=== PATIENT | female | born 1955 | race Caucasian/White ===

== ENCOUNTER 2021-03-20 11:04 | Outpatient (CLI) | payer MEDICARE, SELFPAY ==
--- NOTE | 2021-03-20 11:13 | MM_ITS ---
WS: [id number] BILATERAL DIGITAL SCREENING MAMMOGRAPHY WITH CAD CLINICAL INFORMATION: SCREENING HISTORY: Screening mammogram. No current complaints. COMPARISON: TECHNIQUE: Bilateral CC and MLO views. FINDINGS: Scattered fibroglandular densities bilaterally. No suspicious focal mass, asymmetry, calcifications, or architectural distortion. No evidence of malignancy. MM/[place] [id number] IMPRESSION: BI-RADS: 1-Negative FOLLOW UP: 1 Year Follow-up Recommend return to annual screening mammography.
== END 2021-03-20 11:05 | disposition home or self-care (01) ==
LOC: RADSHAW 11:10
DX: Z12.31 Encounter for screening mammogram for malignant neoplasm of breast (principal)
CPT/HCPCS: 77067

== ENCOUNTER 2021-04-23 13:11 | Outpatient (CLI) | payer MEDICARE, SELFPAY ==
--- NOTE | 2021-04-23 13:17 | US_ITS ---
WS: [id number] RENAL ULTRASOUND HISTORY: FLANK PAIN, RIGHT COMPARISON: 04/23/2018 TECHNIQUE: 2-D and color Doppler imaging of the kidney submitted. Right kidney: 9.7 cm x 3.9 cm x 4.0 cm. Normal echogenicity with no hydronephrosis or mass. Left kidney: 9.5 cm x 4.0 cm x 3.9 cm. Normal echogenicity with no hydronephrosis or mass. Aorta: Normal. Urinary Bladder: Nondistended. US/US renal BI* [id number] IMPRESSION: Normal renal ultrasound.
== END 2021-04-23 13:12 | disposition home or self-care (01) ==
LOC: US 13:12
PROVIDERS: Visit Provider Nurse Practitioner Family
DX: R10.9 Unspecified abdominal pain (principal)
CPT/HCPCS: 76770

== ENCOUNTER 2021-05-08 16:55 | Outpatient (CLI) | payer MEDICARE, SELFPAY ==
--- NOTE | 2021-05-08 17:27 | MR_ITS ---
WS: [id number] MRI LUMBAR SPINE NONCONTRAST HISTORY: NUMBNESS/LOW BACK PAIN COMPARISON: None available. TECHNIQUE: Sagittal and axial multisequence imaging is submitted. Normal lumbar alignment with no compression fractures or marrow edema. Very mild disc desiccation without narrowing throughout the lumbar spine. Conus terminates normally at L1-2 disc level. L1-L2: Normal. L2-L3: Mild facet joint arthritis. No stenosis. L3-L4: Less than 2 mm anterolisthesis of L3. Very mild annular disc bulging with moderate facet and l igamentum flavum hypertrophy. Greater arthritic changes involving the RIGHT facet joint. RIGHT facet joint arthritis encroaches and slightly displaces the RIGHT L4 nerve root. There is encroachment into the thecal sac bilaterally due to facet joint disease. Mild RIGHT foraminal stenosis. L4-L5: Mild annular disc bulging with moderate bilateral facet joint arthritis. Very mild bilateral l ateral recess narrowing. L5-S1: No significant stenosis or disc protrusion. MR/MR lumbar spine wo con* [id number] IMPRESSION: 1. No severe central or foraminal stenosis. 2. Moderate facet joint arthritis at L3-4 with mild encroachment into the thec al sac and mild narrowing of the RIGHT facet joint. 3. RIGHT facet joint arthritic changes encroach upon and slightly displace the RIGHT L4 nerve root in the lateral recess.
== END 2021-05-08 16:56 | disposition home or self-care (01) ==
LOC: RADSHAW 17:01
PROVIDERS: Visit Provider Nurse Practitioner Family
DX: R20.0 Anesthesia of skin (principal); M54.5 Low back pain; M47.816 Spondylosis without myelopathy or radiculopathy, lumbar region
CPT/HCPCS: 72148

== ENCOUNTER → 2021-05-28 10:33 | Outpatient (BNVA) | payer MEDICARE, SELFPAY | PROVIDERS: Referring Provider Nurse Practitioner Family; Visit Provider Orthopaedic Surgery | DX: M47.816 Spondylosis without myelopathy or radiculopathy, lumbar region (principal) | CPT/HCPCS: 72110 ==

== ENCOUNTER → 2021-05-29 08:21 | Outpatient (BNVA) | payer MEDICARE, SELFPAY | PROVIDERS: Referring Provider Orthopaedic Surgery; Visit Provider Anesthesiology Pain Medicine | DX: G89.29 Other chronic pain (principal); M54.9 Dorsalgia, unspecified; M47.816 Spondylosis without myelopathy or radiculopathy, lumbar region; M51.36 Other intervertebral disc degeneration, lumbar region; M54.16 Radiculopathy, lumbar region; M79.604 Pain in right leg | CPT/HCPCS: 99204 ==

== ENCOUNTER → 2021-06-11 12:28 | Outpatient (BNVA) | payer MEDICARE, SELFPAY | PROVIDERS: Visit Provider Anesthesiology Pain Medicine | DX: M54.16 Radiculopathy, lumbar region (principal); M54.9 Dorsalgia, unspecified | CPT/HCPCS: 64483; 64484; J1100; J3490 ==

== ENCOUNTER 2021-10-08 14:14 | Outpatient (CLI) | payer MEDICARE, SELFPAY ==
--- NOTE | 2021-10-08 14:21 | XR_ITS ---
WS: [id number] SCREENING DEXA SCAN [employer] CLINICAL INFORMATION: HIGH RISK FOR OSTEOPOROSIS COMPARISON: 2015 FINDINGS: The L1-L4 bone mineral density measures 1.576 g/cm2. This corresponds to a T score score of 3.3 and Z score of 4.3. Left femoral neck bone mineral density measures 1.279 g/cm2. This corresponds to a T score of 2.2 and Z score of 3.0. Right femoral neck bone mineral density measures 1.281 g/cm2. This corresponds to a T score 2.2of and Z score of 3.0. Mean femoral neck bone mineral density measures 1.280 g/cm2. This corresponds to a T score of 2.2 and Z score of 3.0. XR/XR DEXA axial skeleton* [id number] IMPRESSION: Normal bone mineralization. Patient's FRAX calculated 10 year probability for major osteoporotic fracture i s 9.5 % and osteoporotic hip fracture is 0.2%.
== END 2021-10-08 14:15 | disposition home or self-care (01) ==
PROVIDERS: PCP Clinical Nurse Specialist Adult Health; Visit Provider Clinical Nurse Specialist Adult Health
DX: Z91.89 Other specified personal risk factors, not elsewhere classified (principal)
CPT/HCPCS: 77080

== ENCOUNTER → 2022-02-12 14:59 | Outpatient (BNVA) | payer MEDICARE, SELFPAY | PROVIDERS: PCP Clinical Nurse Specialist Adult Health; Visit Provider Nurse Practitioner Family | DX: R35.0 Frequency of micturition (principal) | CPT/HCPCS: 81003 ==

== ENCOUNTER → 2022-03-10 09:51 | Outpatient (BNVA) | payer MEDICARE, SELFPAY | PROVIDERS: PCP Clinical Nurse Specialist Adult Health; Visit Provider Nurse Practitioner Family | DX: R35.0 Frequency of micturition (principal) | CPT/HCPCS: 81003 ==

== ENCOUNTER 2022-04-22 13:21 | Outpatient (CLI) | payer MEDICARE, SELFPAY ==
--- NOTE | 2022-04-22 13:29 | MM_ITS ---
WS: [id number] VIEWS: MLO and CC views both breasts. 3D digital tomosynthesis is also included in this exam. Comparison made with prior exam of 10/16/2014, 10/17/2015, 04/13/2017, and 03/20/2021.. Findings: There was no sign of mass, architectural distortion or suspicious calcification in either breast. Sc attered fibroglandular densities MM/[place] [id number] Impression: BI-RADS: 2-Benign FOLLOW-UP: 1 Year Follow-up This mammogram was also analyzed by the Computer Aided Detection System R2 Imag e Counselor Aide.
== END 2022-04-22 13:22 | disposition home or self-care (01) ==
LOC: RAD 13:24
PROVIDERS: PCP Clinical Nurse Specialist Adult Health; Visit Provider Clinical Nurse Specialist Adult Health
DX: Z12.31 Encounter for screening mammogram for malignant neoplasm of breast (principal)
CPT/HCPCS: 77063; 77067

== ENCOUNTER 2022-07-09 11:48 | Outpatient (CLI) | payer MEDICARE, SELFPAY ==
--- NOTE | 2022-07-09 11:56 | XRR_ITS ---
PROCEDURE INFORMATION: Exam: XR Chest Exam date and time: 07/09/2022 12:19 PM Age: 66 years old Clinical indication: Cough TECHNIQUE: Imaging protocol: Radiologic exam of the chest. Views: 2 views. Total images: 3 COMPARISON: CR Chest 2 views* [id number] 03/15/2018 2:28 PM FINDINGS: Lungs: Unremarkable. No consolidation. Pleural spaces: Unremarkable. No pleural effusion. No pneumothorax. Heart/Mediastinum: Unremarkable. No cardiomegaly. Bones/joints: Spinal degenerative changes are evident. Organs: Surgical clips are present in the right upper quadrant which are suggestive of prior cholecystectomy. XR/XR chest 2V* [id number] IMPRESSION: No acute findings.
== END 2022-07-09 11:49 | disposition home or self-care (01) ==
LOC: RAD 11:50
PROVIDERS: PCP Clinical Nurse Specialist Adult Health; Visit Provider Specialist
DX: R05.9 Cough, unspecified (principal)
CPT/HCPCS: 71046; 86003

== ENCOUNTER → 2022-07-24 10:29 | Outpatient (BNVA) | payer MEDICARE, SELFPAY | PROVIDERS: PCP Clinical Nurse Specialist Adult Health; Visit Provider Clinical Nurse Specialist Adult Health | DX: E03.9 Hypothyroidism, unspecified (principal) | CPT/HCPCS: 84443 ==

== ENCOUNTER → 2022-07-28 14:44 | Outpatient (BNVA) | payer MEDICARE, SELFPAY | PROVIDERS: PCP Clinical Nurse Specialist Adult Health; Visit Provider Internal Medicine Critical Care Medicine | DX: R05.3 Chronic cough (principal) | CPT/HCPCS: 99204 ==

== ENCOUNTER → 2022-09-01 10:22 | Outpatient (BNVA) | payer MEDICARE, SELFPAY | PROVIDERS: PCP Clinical Nurse Specialist Adult Health; Visit Provider Internal Medicine Critical Care Medicine | DX: R05.3 Chronic cough (principal) | CPT/HCPCS: 99213 ==

== ENCOUNTER → 2022-09-22 10:26 | Outpatient (BNVA) | payer MEDICARE, SELFPAY | PROVIDERS: PCP Clinical Nurse Specialist Adult Health; Visit Provider Clinical Nurse Specialist Adult Health | DX: E78.5 Hyperlipidemia, unspecified (principal); E03.9 Hypothyroidism, unspecified; I10 Essential (primary) hypertension | CPT/HCPCS: 80053; 80061; 84443; 85025 ==

== ENCOUNTER → 2022-09-30 13:30 | Outpatient (BNVA) | payer MEDICARE, SELFPAY | PROVIDERS: PCP Clinical Nurse Specialist Adult Health; Visit Provider Clinical Nurse Specialist Adult Health | DX: R35.0 Frequency of micturition (principal); Z00.01 Encounter for general adult medical examination with abnormal findings | CPT/HCPCS: 81000 ==

== ENCOUNTER → 2022-10-02 15:20 | Outpatient (BNVA) | payer MEDICARE, SELFPAY | PROVIDERS: PCP Clinical Nurse Specialist Adult Health; Visit Provider Clinical Nurse Specialist Adult Health | DX: R35.0 Frequency of micturition (principal); Z00.01 Encounter for general adult medical examination with abnormal findings | CPT/HCPCS: 87086 ==

== ENCOUNTER → 2023-01-12 11:42 | Outpatient (BNVA) | payer MEDICARE, SELFPAY | PROVIDERS: PCP Clinical Nurse Specialist Adult Health; Visit Provider Clinical Nurse Specialist Adult Health | DX: R35.0 Frequency of micturition (principal); N39.0 Urinary tract infection, site not specified | CPT/HCPCS: 81000; 87086 ==

== ENCOUNTER 2023-01-16 09:56 | Outpatient (CLI) | payer MEDICARE, SELFPAY ==
--- NOTE | 2023-01-16 10:27 | XR_ITS ---
WS: [id number] KUB, AP view, 01/16/2023 Clinical Data: hematuria, back and flank pain Comparison: KUB, 06/01/2018 Findings: No abnormal intraabdominal masses or calcifications are seen. There is no dilatated small bowel or ev idence of obstruction. There is a moderate amount of fecal material in the colon. There are clips in the right upper quadran t from a cholecystectomy. XR/XR KUB [id number] Impression: Negative KUB.
== END 2023-01-16 09:57 | disposition home or self-care (01) ==
PROVIDERS: PCP Clinical Nurse Specialist Adult Health; Visit Provider Clinical Nurse Specialist Adult Health
DX: N39.0 Urinary tract infection, site not specified (principal); R31.9 Hematuria, unspecified; R35.0 Frequency of micturition
CPT/HCPCS: 74018

== ENCOUNTER 2023-01-19 14:27 | Emergency (ER) | payer MEDICARE, SELFPAY ==
[2023-01-19] VITALS (32 sets, daily range): BP systolic 124–187; BP diastolic 57–97; PULSE 62–95; RESP 12–28; TEMP 36.3; O2SAT 88–99
--- NOTE | 2023-01-19 15:02 | XR_ITS ---
WS: [id number] Exam: XR chest 1V portable [id number] Date/Time of Exam: 01/19/2023 3:05 PM Reason For Exam: Chest pain Comparison 07/09/2022. Findings: The lungs are clear and fully expanded. Costophrenic angles are sharp. No infiltrates. Bronchovascula r relief appears normal. Cardiac silhouette is unremarkable. Bony elements are intact. XR/XR chest 1V portable [id number] IMPRESSION: Unremarkable chest radiograph.
--- NOTE | 2023-01-19 15:02 | ECG_ITS ---
[facility] Test Date: 2023-01-19 Pat Name: Jimenez Wallis Department: Room: Gender: Female Record Keeper: : 1955 Requested By: Abdulaziz Pabon Order Number: [id number] Deisy MD: Cornelius Washington M.D. Measurements Intervals [place] Rate: 63 P: 59 [place]: 169 QRS: 39 QRSD: 85 T: 72 QT: 409 QTc: 421 Interpretive Statements SINUS RHYTHM MINIMAL ST DEPRESSION [0.025+ mV ST DEPRESSION] INTERPRETATION BASED ON A DEFAULT AGE OF 40 YEARS No previous ECG available for comparison Electronically Signed On 01-19-2023 19:08:26 MACHINE TOOL ELECTRICIAN by Cornelius Washington M.D. [id number] f
[2023-01-19 15:13] LABS: Basophils % 0.4 %; Eosinophils # 0.1 10^3/uL (0.0-0.8); Eosinophils % 0.9 %; Hematocrit 49.9 % (37.0-47.0); Hemoglobin 16.6 g/dL (11.5-15.3); Lymphocytes # 3.3 10^3/uL (0.8-4.8); Lymphocytes % 38.7 %; Mean Corpuscular HGB Conc 33.3 g/dL (30.0-36.0); Mean Corpuscular Hemoglobin 29.5 pg (28.0-34.0); Mean Corpuscular Volume 88.8 fl (81-99); Mean Platelet Volume 10.2 fL (7.4-10.4); Monocytes # 0.8 10^3/uL (0.2-0.9); Monocytes % 9.1 %; Neutrophils # 4.28 10^3/uL (1.8-7.7); Neutrophils % 50.7 %; Nucleated Red Blood Cells % 0 %; Platelet Count 246 10^3/cmm (130-400); Red Blood Count 5.62 10^6/uL (4.1-5.3); Red Cell Distribution Width 12.5 % (12.1-15.1); White Blood Count 8.5 10^3/uL (4.0-10.0)
[2023-01-19] MEDS: labetalol 5 mg/mL SDV 20mL 10 MG IVP (15:13)
[2023-01-19] MEDS: hyDRALAzine 20 mg/mL INJ 1 mL 10 MG IVP (15:14)
[2023-01-19] MEDS: aspirin 81 mg Chew Tablet 324 MG PO (15:14)
--- NOTE | 2023-01-19 15:16 | ED_ITS ---
Documented by User: Abdulaziz Mims DO 01/21/23 14:14 HPI - Chest Pain General: Chief Complaint: Chest Pain Stated Complaint: CHEST PAINS Time Seen by Provider: 01/19/23 14:50 Source: patient Mode of arrival: ambulatory History of Present Illness: 67-year-old female presents to the emergency room with complaint of chest pain. Some discomfort radiating to her back and substernal in the left she woke with it this morning at around 4 AM this persisted. She has no known history of coronary disease no previous MIs no previous stroke she is not diabetic and does not smoke. Prior to today no other episodes of chest discomfort. MD complaint: chest pain Onset (ago): hour(s) Timing of current episode: episodic Prior episodes: No Onset: during rest Pain location: left chest Pain radiation: back Severity: moderate Quality: aching Exacerbating factors: nothing Associated symptoms: Reports no associated symptoms; Deny abdominal pain, diaphoresis, dyspnea, fever(s), leg edema, nausea, pal pitations, sense of impending doom, syncope, vomiting or other Review of Systems Const: Denies: fever(s), chills, fatigue, malaise or diaphoresis ENMT: Denies: throat pain, ear or mastoid pain, nasal discharge or nasal congestion Card: Reports: chest pain; Denies: palpitations, irregular heart rhythm, edema, swelling of feet/ankles or syncope Resp: Denies: dyspnea GI: Denies: abdominal pain, nausea or vomiting : Denies: flank pain, difficulty voiding, dysuria, urinary frequency or urinary urgency Skin/Breast: Denies: rash or pruritus PFSH ED PFSH: Medical History Anemia History of high blood pressure Hyperlipidemia Hypertension Hypothyroidism Urinary frequency Surgical History H/O: hysterectomy Hx of cholecystectomy Hx of foot surgery Family History Mother Sleep apnea Cancer breast cancer with lumpectomy May 2022 Father , Age 69 Heart attack Other CAD (coronary artery disease) Denies family history of Diabetes Stroke Social History Smoking and tobacco status: never smoked Alcohol intake: never Marital status: Current occupational status: retired Physical Exam Const: COMMON NORMALS: no acute distress GENERAL APPEARANCE: cooperative and comfortable ORIENTATION/CONSCIOUSNESS: Yes awake, Yes oriented to person, Yes oriented to place and Yes oriented to time HENMT: COMMON NORMALS: normocephalic, atraumatic and hearing grossly normal bilaterally HEAD & SCALP: normocephalic and atraumatic Resp: COMMON NORMALS: normal respiratory effort, No retractions, No use of accessory muscles and clear to auscultation bilaterally AUSCULTATION: clear to auscultation bilaterally Cardio: COMMON NORMALS: regular rate, regular rhythm and No murmurs present (Cardio) RATE: regular rate RHYTHM: regular rhythm GI: COMMON NORMALS: Soft to palpation and No hepatosplenomegaly present AUSCULTATION: Yes normoactive bowel sounds PALPATION: Yes Soft to palpation, No Tenderness to palpation present (GI), No Guarding due to palpation present (GI) and Yes No hepatosplenomegaly present Extremity: COMMON NORMALS: normal to inspection, capillary refill normal, no clubbing, cyanosis or edema, no calf tenderness and no pedal edema Neuro: SENSORIUM/ORIENTATION: Yes oriented to person, Yes oriented to place and Yes oriented to time Skin: COMMON NORMALS: no rashes or lesions noted GENERAL SKIN EXAM: no rashes or lesions noted Course Vital Signs: Vital signs: Vital Signs Temperature 97.3 F L 01/19/23 14:38 Pulse Rate 67 01/19/23 18:22 Respiratory Rate 18 01/19/23 18:22 Blood Pressure 142/77 01/19/23 18:22 Pulse Oximetry 98 01/19/23 18:22 Oxygen Delivery Me thod 01/19/23 16:32 MDM - Chest Pain Medical Decision Making Care signed out to Dr. Dr. Lovell at change of shift. See final notes for diagnosis and disposition. Patient presents here with chest pain that is since resolved her CT angio of her chest is normal her blood pressure here is improved to 142/77 patient repeat troponins are negative no signs of acute coronary syndrome she is to follow-up with her PCP getting out patient stress test return to ER if worsening she under stands agrees to plans. Lab Data 01/19/23 15:00 01/19/23 15:00 Radiology Impressions Chest X-Ray 01/19/23 15:02 IMPRESSION: Unremarkable chest radiograph. Chest CTA 01/19/23 16:23 IMPRESSION: 1. No evidence for aortic aneurysm or aortic dissection. 2. No evidence for pulmonary embolism. 3. No acute cardiopulmonary process. 4. Incidental/nonacute findings are listed in the report. Laboratory Results WBC 8.5 10^3/uL (4.0-10.0) 01/19/23 15:00 RBC 5.62 10^6/uL (4.1-5.3) H 01/19/23 15:00 Hgb 16.6 g/dL (11.5-15.3) H 01/19/23 15:00 Hct 49.9 % (37.0-47.0) H 01/19/23 15:00 MCV 88.8 fl (81-99) 01/19/23 15:00 MCH 29.5 pg (28.0-34.0) 01/19/23 15:00 MCHC 33.3 g/dL (30.0-36.0) 01/19/23 15:00 RDW 12.5 % (12.1-15.1) 01/19/23 15:00 Plt Count 246 10^3/cmm (130-400) 01/19/23 15:00 MPV 10.2 fL (7.4-10.4) 01/19/23 15:00 Neut % (Auto) 50.7 % 01/19/23 15:00 Lymph % (Auto) 38.7 % 01/19/23 15:00 [place] % (Auto) 9.1 % 01/19/23 15:00 Eos % (Auto) 0.9 % 01/19/23 15:00 Baso % (Auto) 0.4 % 01/19/23 15:00 Neut # (Auto) 4.28 10^3/uL (1.8-7.7) 01/19/23 15:00 Lymph # (Auto) 3.3 10^3/uL (0.8-4.8) 01/19/23 15:00 [place] # (Auto) 0.8 10^3/uL (0.2-0.9) 01/19/23 15:00 Eos # (Auto) 0.1 10^3/uL (0.0-0.8) 01/19/23 15:00 Baso # (Auto) 0.0 10^3/uL (0.0-0.1) 01/19/23 15:00 Nucleated RBC % (auto) 0 % 01/19/23 15:00 Nucleated RBCs # 0.0 /100WBC 01/19/23 15:00 Sodium 138 mmol/L (136-145) 01/19/23 15:00 Potassium 4.0 mmol/L (3.5-5.1) 01/19/23 15:00 Chloride 99 mmol/L (98-107) 01/19/23 15:00 Carbon Dioxide 26 mmol/L (22-29) 01/19/23 15:00 Anion Gap 17.0 (5-19) 01/19/23 15:00 BUN 9 mg/dL (8-23) 01/19/23 15:00 Creatinine 0.8 mg/dL (0.5-0.9) 01/19/23 15:00 GFR Calculation 71.5 mL/min (90-130) L 01/19/23 15:00 Glucose 88 mg/dL (65-115) 01/19/23 15:00 Calculated Osmolality 284 mOsm/kg (285-295) L 01/19/23 15:00 Calcium 9.9 mg/dL (8.5-10.5) 01/19/23 15:00 Total Bilirubin 1.2 mg/dL (0.15-1.2) 01/19/23 15:00 AST 17 U/L (0-32) 01/19/23 15:00 ALT 15 U/L (0-33) 01/19/23 15:00 Alkaline Phosphatase 79 U/L (35-105) 01/19/23 15:00 Troponin T Baseline 6 ng/L (0-10) 01/19/23 15:00 Troponin T 120 Minute 6.00 ng/L (0-10) 01/19/23 17:46 Delta Troponin T 0 ABS# (0-10) 01/19/23 17:46 Total Protein 7.1 g/dL (6.6-8.7) 01/19/23 15:00 Albumin 4.4 g/dL (3.5-5.2) 01/19/23 15:00 Globulin 2.7 g/dL (1.3-4.6) 01/19/23 15:00 Discharge Plan Discharge Patient Disposition: Home Clinical Impression: Chest pain Condition: Stable Prescriptions: No Action ciprofloxacin HCl [Cipro] 500 mg tablet 500 mg PO BID 7 Days Qty: 14 0RF azelastine 137 mcg (0.1 %) aerosol,spray 1 spray intranasal BID Rx Instructions: administer into each nostril fluticasone propionate [Flonase Allergy Relief] 50 mcg/actuation spray,suspension 1 spray intranasal Q12H 30 Days Qty: 16 4RF Rx Instructions: administer into each nostril benzonatate 200 mg capsule 200 mg PO TID PRN (Reason: cough) 30 Days Qty: 90 4RF losartan 50 mg tablet 50 mg PO DAILY Qty: 90 3RF levothyroxine 88 mcg tablet 88 mcg PO DAILY Qty: 90 1RF omeprazole 20 mg capsule,delayed release(DR/EC) 20 mg PO DAILY Qty: 90 3RF lovastatin 20 mg tablet 40 mg PO DAILY Qty: 90 3RF estradiol 1 mg tablet 0.5 mg PO DAILY Qty: 30 11RF Discharge Orders: Discharge ED (Routine); Ordered 01/19/23 Ordered By: Holly Lovell Referrals: Denton Hernandez CIGAR TOBACCO PROCESSING SUPERVISOR [Primary Care Provider] - Discharge Diet: Advance as tolerated Discharge Activity: Resume usual activity Patient Instructions: Chest Pain (ED) Coding Level of Care Code ED Ingot Buggy Operator for Chg Fwd Documented by User: Holly Lovell MD 01/19/23 18:18 HPI - Chest Pain General: Chief Complaint: Chest Pain Stated Complaint: CHEST PAINS Time Seen by Provider: 01/19/23 14:50 PFSH ED PFSH: Medical History Anemia History of high blood pressure Hyperlipidemia Hypertension Hypothyroidism Urinary frequency Surgical History H/O: hysterectomy Hx of cholecystectomy Hx of foot surgery Family History Mother Sleep apnea Cancer breast cancer with lumpectomy May 2022 Father , Age 69 Heart attack Other CAD (coronary artery disease) Denies family history of Diabetes Stroke Social History Smoking and tobacco status: never smoked Alcohol intake: never Marital status: Current occupational status: retired Course Vital Signs: Vital signs: Vital Signs Temperature 97.3 F L 01/19/23 14:38 Pulse Rate 67 01/19/23 18:22 Respiratory Rate 18 01/19/23 18:22 Blood Pressure 142/77 01/19/23 18:22 Pulse Oximetry 98 01/19/23 18:22 Oxygen Delivery Me thod 01/19/23 16:32 MDM - Chest Pain Medical Decision Making Patient presents here with chest pain that is since resolved her CT angio of her chest is normal her blood pressure here is improved to 142/77 patient repeat troponins are negative no signs of acute coronary syndrome she is to follow-up with her PCP getting out patient stress test return to ER if worsening she understands agrees to plans. Lab Data 01/19/23 15:00 01/19/23 15:00 Radiology Impressions Chest X-Ray 01/19/23 15:02 IMPRESSION: Unremarkable chest radiograph. Chest CTA 01/19/23 16:23 IMPRESSION: 1. No evidence for aortic aneurysm or aortic dissection. 2. No evidence for pulmonary embolism. 3. No acute cardiopulmonary process. 4. Incidental/nonacute findings are listed in the report. Laboratory Results WBC 8.5 10^3/uL (4.0-10.0) 01/19/23 15:00 RBC 5.62 10^6/uL (4.1-5.3) H 01/19/23 15:00 Hgb 16.6 g/dL (11.5-15.3) H 01/19/23 15:00 Hct 49.9 % (37.0-47.0) H 01/19/23 15:00 MCV 88.8 fl (81-99) 01/19/23 15:00 MCH 29.5 pg (28.0-34.0) 01/19/23 15:00 MCHC 33.3 g/dL (30.0-36.0) 01/19/23 15:00 RDW 12.5 % (12.1-15.1) 01/19/23 15:00 Plt Count 246 10^3/cmm (130-400) 01/19/23 15:00 MPV 10.2 fL (7.4-10.4) 01/19/23 15:00 Neut % (Auto) 50.7 % 01/19/23 15:00 Lymph % (Auto) 38.7 % 01/19/23 15:00 Har[place] % (Auto) 9.1 % 01/19/23 15:00 Eos % (Auto) 0.9 % 01/19/23 15:00 Baso % (Auto) 0.4 % 01/19/23 15:00 Neut # (Auto) 4.28 10^3/uL (1.8-7.7) 01/19/23 15:00 Lymph # (Auto) 3.3 10^3/uL (0.8-4.8) 01/19/23 15:00 [place] # (Auto) 0.8 10^3/uL (0.2-0.9) 01/19/23 15:00 Eos # (Auto) 0.1 10^3/uL (0.0-0.8) 01/19/23 15:00 Baso # (Auto) 0.0 10^3/uL (0.0-0.1) 01/19/23 15:00 Nucleated RBC % (auto) 0 % 01/19/23 15:00 Nucleated RBCs # 0.0 /100WBC 01/19/23 15:00 Sodium 138 mmol/L (136-145) 01/19/23 15:00 Potassium 4.0 mmol/L (3.5-5.1) 01/19/23 15:00 Chloride 99 mmol/L (98-107) 01/19/23 15:00 Carbon Dioxide 26 mmol/L (22-29) 01/19/23 15:00 Anion Gap 17.0 (5-19) 01/19/23 15:00 BUN 9 mg/dL (8-23) 01/19/23 15:00 Creatinine 0.8 mg/dL (0.5-0.9) 01/19/23 15:00 GFR Calculation 71.5 mL/min (90-130) L 01/19/23 15:00 Glucose 88 mg/dL (65-115) 01/19/23 15:00 Calculated Osmolality 284 mOsm/kg (285-295) L 01/19/23 15:00 Calcium 9.9 mg/dL (8.5-10.5) 01/19/23 15:00 Total Bilirubin 1.2 mg/dL (0.15-1.2) 01/19/23 15:00 AST 17 U/L (0-32) 01/19/23 15:00 ALT 15 U/L (0-33) 01/19/23 15:00 Alkaline Phosphatase 79 U/L (35-105) 01/19/23 15:00 Troponin T Baseline 6 ng/L (0-10) 01/19/23 15:00 Troponin T 120 Minute 6.00 ng/L (0-10) 01/19/23 17:46 Delta Troponin T 0 ABS# (0-10) 01/19/23 17:46 Total Protein 7.1 g/dL (6.6-8.7) 01/19/23 15:00 Albumin 4.4 g/dL (3.5-5.2) 01/19/23 15:00 Globulin 2.7 g/dL (1.3-4.6) 01/19/23 15:00 Discharge Plan Discharge Patient Disposition: Home Clinical Impression: Chest pain Condition: Stable Prescriptions: No Action ciprofloxacin HCl [Cipro] 500 mg tablet 500 mg PO BID 7 Days Qty: 14 0RF azelastine 137 mcg (0.1 %) aerosol,spray 1 spray intranasal BID Rx Instructions: administer into each nostril fluticasone propionate [Flonase Allergy Relief] 50 mcg/actuation spray,suspension 1 spray intranasal Q12H 30 Days Qty: 16 4RF Rx Instructions: administer into each nostril benzonatate 200 mg capsule 200 mg PO TID PRN (Reason: cough) 30 Days Qty: 90 4RF losartan 50 mg tablet 50 mg PO DAILY Qty: 90 3RF levothyroxine 88 mcg tablet 88 mcg PO DAILY Qty: 90 1RF omeprazole 20 mg capsule,delayed release(DR/EC) 20 mg PO DAILY Qty: 90 3RF lovastatin 20 mg tablet 40 mg PO DAILY Qty: 90 3RF estradiol 1 mg tablet 0.5 mg PO DAILY Qty: 30 11RF Discharge Orders: Discharge ED (Routine); Ordered 01/19/23 Ordered By: Holly Lovell Referrals: Denton Hernandez CIGAR TOBACCO PROCESSING SUPERVISOR [Primary Care Provider] - Discharge Diet: Advance as tolerated Discharge Activity: Resume usual activity Patient Instructions: Chest Pain (ED) Coding Level of Care Code ED Ingot Buggy Operator for Verna Lorenz
[2023-01-19] MEDS: nitroglycerin 1 gm/inch oint Pkt 1 INCH TOPICAL (15:17)
[2023-01-19 15:37] LABS: Alanine Aminotransferase 15 U/L (0-33); Albumin Level 4.4 g/dL (3.5-5.2); Alkaline Phosphatase 79 U/L (35-105); Aspartate Amino Transferase 17 U/L (0-32); Blood Urea Nitrogen 9 mg/dL (8-23); Calcium 9.9 mg/dL (8.5-10.5); Carbon Dioxide 26 mmol/L (22-29); Chloride 99 mmol/L (98-107); Creatinine Clr Calc Pharmacy 68.5829; Globulin 2.7 g/dL (1.3-4.6); Glomerular Filtration Rate 71.5 mL/min (90-130); Glucose 88 mg/dL (65-115); Osmolality Calculated 284 mOsm/kg (285-295); Sodium 138 mmol/L (136-145); Total Bilirubin 1.2 mg/dL (0.15-1.2); Total Protein 7.1 g/dL (6.6-8.7)
[2023-01-19 15:38] LABS: Troponin(5th) Baseline 6 ng/L (0-10)
--- NOTE | 2023-01-19 16:23 | CTR_ITS ---
PROCEDURE INFORMATION: Exam: CTA Chest With Contrast Exam date and time: 01/19/2023 4:49 PM Age: 67 years old Clinical indication: Pain; Chest pressure and other: Back; Prior surgery; Surgery type: Gb; Additional info: Chest/back pain TECHNIQUE: Imaging protocol: Computed tomographic angiography of the chest with contrast. 3D rendering (Not supervised by radiologist): MIP and/or 3D reconstructed images were created by the technologist. Radiation optimization: All CT scans at this facility use at least one of these dose optimization techniques: automated exposure control; mA and/or kV adjustment per patient size (includes targeted exams where dose is matched to clinical indication); or iterative reconstruction. Contrast material: OMNI 350; Contrast volume: 100 ml; Contrast route: INTRAVENOUS (IV); Other protocol: This patient has received 0 known CTs and 0 known cardiac nuclear medicine studies in the 12 months prior to the current study. COMPARISON: CR XR chest 1V portable [id number] 01/19/2023 3:08 PM RADIATION DOSE METRICS: Total DLP (mGy-cm): 677.89 FINDINGS: Pulmonary arteries: No filling defects in the pulmonary arteries to suggest pulmonary embolism. Aorta: Mild atherosclerotic changes in the visualized arteries. No evidence for aortic aneurysm or aortic dissection. Trachea: Tracheobronchial structures are patent. Lungs: Lungs are clear bilaterally. No pulmonary parenchymal nodules or masses. Pleural spaces: No pneumothorax. No pleural effusion. Heart: The heart is unremarkable as visualized. Coronary arteries: No coronary artery calcification. Esophagus: The esophagus is unremarkable. Mediastinal space: No mediastinal hematoma. No pneumomediastinum. Lymph nodes: No lymphadenopathy. Liver: The visualized liver is unremarkable. Gallbladder and bile ducts: Patient has had a previous cholecystectomy. No dilatation of the visualized bile ducts. Pancreas: The visualized pancreas is unremarkable. No pancreatic ductal dilatation. Spleen: The visualized spleen is unremarkable. Adrenal glands: The right and left adrenal glands are unremarkable. Kidneys and ureters: The visualized right and left kidneys are unremarkable. Bones/joints: Degenerative changes in the spine and shoulders. Soft tissues: No acute abnormality in the extrathoracic soft tissues. CT/CT angio chest [id number] IMPRESSION: 1. No evidence for aortic aneurysm or aortic dissection. 2. No evidence for pulmonary embolism. 3. No acute cardiopulmonary process. 4. Incidental/nonacute findings are listed in the report.
--- NOTE | 2023-01-19 16:27 | ECG_ITS ---
[facility] Test Date: 2023-01-19 Pat Name: Jimenez Wallis Department: Room: Gender: Female Residential Mortgage Manager: : 1955 Requested By: Abdulaziz Pabon Order Number: [id number] Deisy MD: Cornelius Washington M.D. Measurements Intervals [place] Rate: 61 P: 50 [place]: 180 QRS: 37 QRSD: 91 T: 59 QT: 441 QTc: 448 Interpretive Statements SINUS RHYTHM Compared to ECG 01/19/2023 14:36:52 ST (T wave) deviation no longer present Electronically Signed On 01-19-2023 19:17:31 DENTAL ASSISTANT INSTRUCTOR by Cornelius Washington M.D. [email or web address] [email or web address] [email or web address] [email or web address] Wireless Healthdiley ridge medical [email or web address]/store/[id number]
[2023-01-19] MEDS: iohexol 350 mg/mL 500 mL Btl (per mL) IV (16:50)
[2023-01-19 18:16] LABS: Troponin 5 2HR Delta 0 ABS# (0-10)
== END 2023-01-19 18:24 | disposition home or self-care (01) ==
PROVIDERS: Family Medicine; Emergency Provider Emergency Medicine; PCP Clinical Nurse Specialist Adult Health
DX: R07.9 Chest pain, unspecified (principal); I10 Essential (primary) hypertension; E78.5 Hyperlipidemia, unspecified
CPT/HCPCS: 71045; 71275; 80053; 84484; 85025; 93005; 96374; 96375; 99285; J0360; J3490; Q9967

== ENCOUNTER 2023-03-19 19:39 | Observation (INO) | payer MEDICARE, SELFPAY ==
[2023-03-19] VITALS (9 sets, daily range): BP systolic 113–208; BP diastolic 60–83; PULSE 59–110; RESP 10–20; TEMP 36.8; O2SAT 95–99
--- NOTE | 2023-03-19 19:43 | CTR_ITS ---
PROCEDURE INFORMATION: Exam: CT Head Without Contrast Exam date and time: 03/19/2023 7:41 PM Age: 67 years old Clinical indication: Stroke-like symptoms; Left facial droop; Additional info: CVA TECHNIQUE: Imaging protocol: Computed tomography of the head without contrast. Radiation optimization: All CT scans at this facility use at least one of these dose optimization techniques: automated exposure control; mA and/or kV adjustment per patient size (includes targeted exams where dose is matched to clinical indication); or iterative reconstruction. Other technique: STROKE PROTOCOL was implemented. REPORTING DATA: Count of CT and Cardiac NM exams in prior 12 months: This patient has received [address] and 0 known cardiac nuclear medicine studies in the 12 months prior to the current study. COMPARISON: No relevant prior studies available. RADIATION DOSE METRICS: Total DLP (mGy-cm): 1104.26 FINDINGS: Brain: There are white matter lucencies most likely to represent mild chronic microvascular disease. No acute infarct is identified. There is no hemorrhage or extra-axial collection. There is no mass. Cerebral ventricles: There is no hydrocephalus. Paranasal sinuses: Visualized sinuses are unremarkable. No fluid levels. Mastoid air cells: Visualized mastoid air cells are well aerated. Bones/joints: Unremarkable. No acute fracture. Soft tissues: Unremarkable. CT/CT head wo con* [id number] IMPRESSION: 1. Mild chronic microvascular disease. 2. No acute intracranial lesion or injury ASSESSMENT: ASPECTS ([employer] Stroke Program Early CT Score) is 10.
--- NOTE | 2023-03-19 19:56 | ECG_ITS ---
[facility] Test Date: 2023-03-19 Pat Name: Jimenez Wallis Department: Room: Gender: Female [employer] Machine Operator: : 1955 Requested By: Agustín Olguin Order Number: [id number] Olivas MD: Cornelius Washington M.D. Measurements Intervals [place] Rate: 59 P: 56 IA: 188 QRS: 58 QRSD: 83 T: 65 QT: 428 QTc: 425 Interpretive Statements SINUS BRADYCARDIA MINIMAL ST DEPRESSION [0.025+ mV ST DEPRESSION] Compared to ECG 01/19/2023 16:27:07 ST (T wave) deviation now present Sinus rhythm no longer present Electronically Signed On 03-20-2023 1:35:15 CDT by Cornelius Washington M.D. [id number]
[2023-03-19 20:05] LABS: Glucose Point of Care 86 mg/dL (70-110)
--- NOTE | 2023-03-19 20:54 | ED_ITS ---
HPI - Neuro Symptoms/Deficit General: Chief Complaint: Neuro Symptoms/Deficit Stated Complaint: STROKE Time Seen by Provider: 03/19/23 19:47 History of Present Illness: Patient with a history of hypertension, hyperlipidemia, UTI, and hypothyroid presents the emergency department after 3 strokelike episodes this evening. Patient states that at approximately 1730 this evening as the passenger in a car her was driving on the way home from the vet after putting down her dog, she had sudden onset left facial droop, slurred speech, and left arm weakness, this lasted approximately 15 minutes after which it resolved. She states that she had 2 additional 15-minute episodes between 1730 and 1930 this evening, for a total of 3 episodes. She denies any involvement of her feet or gait. She states that during the third episode her called 911, but by the time the ambulance arrived all of her deficits had resolved. She denies any recurrence since that time. Her only complaint at this time is a bilateral frontal headache. No other modifying factors, no other associated symptoms. Review of Systems General: Reports: 10 or more systems reviewed and unremarkable except in HPI and below PFSH ED PFSH: Medical History Anemia History of high blood pressure Hyperlipidemia Hypertension Hypothyroidism Urinary frequency Surgical History H/O: hysterectomy Hx of cholecystectomy Hx of foot surgery Family History Mother Sleep apnea Cancer breast cancer with lumpectomy May 2022 Father , Age 69 Heart attack Other CAD (coronary artery disease) Denies family history of Diabetes Stroke Social History Smoking and tobacco status: never smoked Alcohol intake: never Substance/Drug Use: never Marital status: Current occupational status: retired NIH stroke score NIHSS: Level Of Consciousness - 1a: 0 Level Of Consciousness Questions - 1 b: Both Correct Level Of Consciousness Commands - 1c: Both Correct Best Gaze - 2: Normal Visual Bella - 3: No Visual Loss Facial Palsy - 4: Normal Motor Arm Right - 5: No Drift Motor Arm Left - 5: No Drift Motor Leg Right - 6: No Drift Motor Leg Left - 6: No Drift Limb Ataxia - 7: Absent Sensory - 8: Normal Best Language - 9: No Aphasia Dysarthia - 10: Normal Extinction And Inattention - 11: 0 Score: Total Score: 0 Physical Exam Const: COMMON NORMALS: no acute distress, patient oriented x3 and alert GENERAL APPEARANCE: cooperative and well kempt ORIENTATION/CONSCIOUSNESS: Yes awake, Yes oriented to person, Yes oriented to place and Yes oriented to time HENMT: COMMON NORMALS: normocephalic, atraumatic, hearing grossly normal bilaterally, external ears normal and Normal external nose present HEAD & SCALP: normocephalic and atraumatic FACE & SINUS: normal facial exam NOSE: Normal external nose present EXTERNAL EAR: Yes external ears normal MOUTH: Normal oral and palatal mucosa present THROAT: posterior oropharynx normal Eye: COMMON NORMALS: Equal, round and reactive pupils present and EOMs intact bilaterally PUPIL: Yes Equal, round and reactive pupils present Neck/C-Spine: COMMON NORMALS: supple GENERAL: Yes normal visual inspection CERVICAL SPINE: No Cervical spine tenderness and No step off deformity Chest: COMMONS NORMALS: normal inspection of the chest Resp: COMMON NORMALS: normal respiratory effort, No retractions, No use of accessory muscles and clear to auscultation bilaterally AUSCULTATION: clear to auscultation bilaterally Cardio: COMMON NORMALS: regular rhythm and Peripheral pulses 2+ throughout RATE: bradycardic RHYTHM: regular rhythm PERIPHERAL PULSES: Peripheral pulses 2+ throughout GI: COMMON NORMALS: Normal to inspection, nondistended, normoactive bowel sounds present, Soft to palpation and non-tender PALPATION: Yes Soft to palpation : COMMON NORMALS: Yes no CVA tenderness BLADDER/KIDNEY EXAM: Yes no CVA tenderness Back/Pelvis: COMMON NORMALS: no CVA tenderness and thoracic and lumbar spine normal to inspection THORACIC SPINE/UPPER BACK: Yes normal to inspection LUMBAR SPINE/LOWER BACK: Yes normal to inspection Extremity: COMMON NORMALS: normal to inspection and full ROM GENERAL: No clubbing and No cyanosis Neuro: COMMON NORMALS: patient oriented x3, moves all extremities, no focal motor deficits and no sensory deficits noted SENSORIUM/ORIENTATION: Yes alert, Yes oriented to person, Yes oriented to place and Yes oriented to time CRANIAL NERVES: Yes CN normal except as noted SPEECH: speech normal MOTOR EXAM: 5/5 motor strength present throughout Psych: COMMON NORMALS: mental status grossly normal, Normal thought process present, cooperative and activity/motor behavior normal APPEARANCE: Yes well kempt ATTITUDE: Yes calm THOUGHT PROCESS: Normal thought process present Skin: COMMON NORMALS: no rashes or lesions noted GENERAL SKIN EXAM: no rashes or lesions noted Course Reevaluation(s): Reevaluation #1: Advised by nursing that the patient is having left-sided facial droop starting at approximately 915, I reevaluated the patient, her current NIH score is 4, 2 points for left-sided facial droop,, one-point for decreased sensation, one- point for slurred speech, she does have some left arm weakness, but no drift on NIH. Time: 21:19 Consultations: Consultation #1: Spoke with Chemo Teleneuro Dr. Carlos Serrano who will do teleneuro eval, request rose t radiology push images. Time: 21:46 Consultation #2: Call back from Dr. Serrano who states no TPA due to patient being sleeping and encephalopathic given only minimal weakness. Requests CTA head/neck and admit for MRI. Time: 22:03 Consultation #3: Spoke to hospitalist Dr. Morgan who accepted the patient for observation.. Time: 00:02 Vital Signs: Vital signs: Vital Signs Temperature 98.3 F 03/19/23 19:40 Pulse Rate 110 H 03/19/23 23:30 Respiratory Rate 14 03/19/23 23:30 Blood Pressure 153/73 03/19/23 23:30 Pulse Oximetry 96 03/19/23 23:30 Oxygen Delivery Me thod Room Air 03/19/23 23:00 MDM - Neuro Symptoms/Deficit Medical Decision Making Concerned that this patient with multiple risk factors had several TIAs this evening. CT head is negative, will start aspirin, patient will require inpatient observation for TIA work-up. Given that she is significantly hypertensive, will start antihypertensive medication here in the emergency department. Lab Data 03/19/23 20:02 03/19/23 20:[address] 03/19/23 19:43 IMPRESSION: 1. Mild chronic microvascular disease. 2. No acute intracranial lesion or injury ASSESSMENT: ASPECTS ([place] Stroke Program Early CT Score) is 10. Head/Neck CTA 03/19/23 22:02 IMPRESSION: No intracranial large vessel critical stenosis or occlusion IMPRESSION: No carotid or vertebral artery stenosis. REFERENCES: NASCET CRITERIA. The degree of stenosis in the cervical segment of the internal carotid artery is based on NASCET criteria. Normal is no stenosis. Mild is less than 50% stenosis. Moderate is 50-69% stenosis. Severe is 70% to 99% stenosis. Total occlusion is no detectable patent lumen. Laboratory Results WBC 8.1 10^3/uL (4.0-10.0) 03/19/23 20: RBC 4.78 10^6/uL (4.1-5.3) 03/19/23 20: Hgb 14.0 g/dL (11.5-15.3) 03/19/23 20: Hct 42.4 % (37.0-47.0) 03/19/23 20: MCV 88.7 fl (81-99) 03/19/23 20: MCH 29.3 pg (28.0-34.0) 03/19/23: MCHC 33.0 g/dL (30.0-36.0) 03/19/23 20: RDW 13.1 % (12.1-15.1) 03/19/23 20: Plt Count 207 10^3/cmm (130-400) 03/19/23 20: MPV 10.7 fL (7.4-10.4) H 03/19/23 20: Neut % (Auto) 49.9 % 03/19/23 20: Lymph % (Auto) 39.4 % 03/19/23 20: [place] % (Auto) 9.2 % 03/19/23 20: Eos % (Auto) 0.9 % 03/19/23 20: Baso % (Auto) 0.4 % 03/19/23 20: Neut # (Auto) 4.03 10^3/uL (1.8-7.7) 03/19/23 20: Lymph # (Auto) 3.2 10^3/uL (0.8-4.8) 03/19/23 20: [place] # (Auto) 0.7 10^3/uL (0.2-0.9) 03/19/23 20: Eos # (Auto) 0.1 10^3/uL (0.0-0.8) 03/19/23 20:02 Baso # (Auto) 0.0 10^3/uL (0.0-0.1) 03/19/23 20:02 Nucleated RBC % (auto) 0 % 03/19/23 20:02 Nucleated RBCs # 0.0 /100WBC 03/19/23 20: PT 13.20 SECONDS (12.1-14.9) 03/19/23 20:02 INR 0.97 (0.8-1.2) 03/19/23 20:02 APTT 22.8 SECONDS (23.9-36.7) L 03/19/23 20:02 Sodium 144 mmol/L (136-145) 03/19/23 20: Potassium 3.7 mmol/L (3.5-5.1) 03/19/23 20: Chloride 106 mmol/L (98-107) 03/19/23 20: Carbon Dioxide 28 mmol/L (22-29) 03/19/23 20:02 Anion Gap 13.7 (5-19) 03/19/23 20:02 BUN 9 mg/dL (8-23) 03/19/23 20:02 Creatinine 0.7 mg/dL (0.5-0.9) 03/19/23 20: GFR Calculation 83.5 mL/min (90-130) L 03/19/23 20:02 Glucose 85 mg/dL (65-115) 03/19/23 20:02 POC Glucose 102 mg/dL (70-110) 03/19/23 21:42 Calculated Osmolality 296 mOsm/kg (285-295) H 03/19/23 20:02 Calcium 8.7 mg/dL (8.5-10.5) 03/19/23 20:02 Total Bilirubin 1.0 mg/dL (0.15-1.2) 03/19/23 20:02 AST 14 U/L (0-32) 03/19/23 20:02 ALT 13 U/L (0-33) 03/19/23 20:02 Alkaline Phosphatase 72 U/L (35-105) 03/19/23 20:02 Troponin T Baseline 10 ng/L (0-10) 03/19/23 20:02 Troponin T 120 Minute 6.87 ng/L (0-10) 03/19/23 23:40 Total Protein 6.3 g/dL (6.6-8.7) L 03/19/23 20:02 Albumin 3.9 g/dL (3.5-5.2) 03/19/23 20:02 Globulin 2.4 g/dL (1.3-4.6) 03/19/23 20:02 Urine Color Light yellow (Yellow) 03/19/23 23:22 Urine Appearance Clear (CLEAR) 03/19/23 23:22 Urine pH 6 (5-7) 03/19/23 23:22 Ur Specific [place] 1.005 (1.005-1.030) 03/19/23 23:22 Urine Protein Neg (Negative) 03/19/23 23:22 Urine Glucose (UA) Norm (Normal) 03/19/23 23:22 Urine Ketones Negative (Negative) 03/19/23 23:22 Urine Blood Neg (Negative) 03/19/23 23:22 Urine Nitrate Negative (Negative) 03/19/23 23:22 Urine Bilirubin Neg (Negative) 03/19/23 23:22 Urine Urobilinogen Neg mg/dL (Negative) 03/19/23 23:22 Ur Leukocyte Esterase Negative (Negative) 03/19/23 23:22 Urine Opiates Screen Positive ng/mL (Negative) H 03/19/23 23:22 Ur Barbiturates Screen Negative ng/mL (Negative) 03/19/23 23:22 Ur Phencyclidine Scrn Negative ng/mL (Negative) 03/19/23 23:22 Ur Amphetamines Screen Negative ng/mL (Negative) 03/19/23 23:22 U Benzodiazepines Scrn Negative ng/mL (Negative) 03/19/23 23:22 Urine Cocaine Screen Negative ng/mL (Negative) 03/19/23 23:22 U Marijuana (THC) Screen Negative ng/mL (Negative) 03/19/23 23:22 Critical Care Time Critical Care Time: Critical Care Time: Yes Total Critical Care Time: 47 Attestation: This case had a high probability of a clinically significant, sudden, or life threatening deterioration of this patient's condition which required my full and direct attention, intervention and personal management. Discharge Plan Discharge Patient Disposition: Placed in Observation Clinical Impression: TIA (transient ischemic attack), Hypertensive urgency Coding Level of Care Code ED Medical Research Scientist for Verna Lorenz
[2023-03-19] MEDS: aspirin 325 mg Tablet PO (20:55)
[2023-03-19 20:57] LABS: Basophils % 0.4 %; Eosinophils # 0.1 10^3/uL (0.0-0.8); Eosinophils % 0.9 %; Hematocrit 42.4 % (37.0-47.0); Lymphocytes # 3.2 10^3/uL (0.8-4.8); Lymphocytes % 39.4 %; Mean Corpuscular Hemoglobin 29.3 pg (28.0-34.0); Mean Corpuscular Volume 88.7 fl (81-99); Mean Platelet Volume 10.7 fL (7.4-10.4); Monocytes # 0.7 10^3/uL (0.2-0.9); Monocytes % 9.2 %; Neutrophils # 4.03 10^3/uL (1.8-7.7); Neutrophils % 49.9 %; Nucleated Red Blood Cells % 0 %; Platelet Count 207 10^3/cmm (130-400); Red Blood Count 4.78 10^6/uL (4.1-5.3); Red Cell Distribution Width 13.1 % (12.1-15.1); White Blood Count 8.1 10^3/uL (4.0-10.0)
[2023-03-19 21:11] LABS: INR 0.97 (0.8-1.2)
[2023-03-19 21:12] LABS: Partial Thromboplastin Time 22.8 SECONDS (23.9-36.7)
[2023-03-19] MEDS: amlodipine 10 mg Tablet PO (21:13)
[2023-03-19] MEDS: prochlorperazine 10 mg/2 mL Inj IVP (21:14)
[2023-03-19] MEDS: hyDRALAzine 20 mg/mL INJ 1 mL 10 MG IVP ×2 (21:14→21:41)
[2023-03-19 21:21] LABS: Troponin(5th) Baseline 10 ng/L (0-10)
[2023-03-19 21:22] LABS: Alanine Aminotransferase 13 U/L (0-33); Albumin Level 3.9 g/dL (3.5-5.2); Alkaline Phosphatase 72 U/L (35-105); Anion Gap 13.7 (5-19); Aspartate Amino Transferase 14 U/L (0-32); Blood Urea Nitrogen 9 mg/dL (8-23); Calcium 8.7 mg/dL (8.5-10.5); Carbon Dioxide 28 mmol/L (22-29); Chloride 106 mmol/L (98-107); Globulin 2.4 g/dL (1.3-4.6); Glomerular Filtration Rate 83.5 mL/min (90-130); Glucose 85 mg/dL (65-115); Osmolality Calculated 296 mOsm/kg (285-295); Potassium 3.7 mmol/L (3.5-5.1); Sodium 144 mmol/L (136-145); Total Protein 6.3 g/dL (6.6-8.7)
[2023-03-19 21:45] LABS: Glucose Point of Care 102 mg/dL (70-110)
--- NOTE | 2023-03-19 22:02 | CTR_ITS ---
PROCEDURE INFORMATION: Exam: CTA Head With Contrast, Arteriography Exam date and time: 03/19/2023 10:48 PM Age: 67 years old Clinical indication: Stroke-like symptoms; Lt upper extremity and lt lower extremity weakness; Additional info: TIA vs CVA TECHNIQUE: Imaging protocol: Computed tomographic angiography of the head with contrast. Exam focused on the arteries. 3D rendering (Not supervised by radiologist): MIP and/or 3D reconstructed images were created by the technologist. Radiation optimization: All CT scans at this facility use at least one of these dose optimization techniques: automated exposure control; mA and/or kV adjustment per patient size (includes targeted exams where dose is matched to clinical indication); or iterative reconstruction. Contrast material: OMNI 350; Contrast volume: 100 ml; Contrast route: INTRAVENOUS (IV); REPORTING DATA: Count of CT and Cardiac NM exams in prior 12 months: This patient has received [address] and 0 known cardiac nuclear medicine studies in the 12 months prior to the current study. COMPARISON: CT head wo con* [id number] 03/19/2023 7:41 PM RADIATION DOSE METRICS: Total DLP (mGy-cm): 498.66 FINDINGS: ANTERIOR CIRCULATION: Right internal carotid artery: Intracranial segment is patent with no significant stenosis. No aneurysm. Right middle cerebral artery: No occlusion or significant stenosis. No aneurysm. Right anterior cerebral artery: No occlusion or significant stenosis. No aneurysm. Left internal carotid artery: Intracranial segment is patent with no significant stenosis. No aneurysm. Left middle cerebral artery: No occlusion or significant stenosis. No aneurysm. Left anterior cerebral artery: No occlusion or significant stenosis. No aneurysm. POSTERIOR CIRCULATION: Right vertebral artery: No occlusion or significant stenosis. No aneurysm. Left vertebral artery: Left vertebral artery is dominant. No stenosis. No aneurysm. Basilar artery: No occlusion or significant stenosis. No aneurysm. Right posterior cerebral artery: There is mild stenosis of the P1 segment of the right posterior cerebral artery. No occlusion. No aneurysm. Left posterior cerebral artery: No occlusion or significant stenosis. No aneurysm. Brain: No definite mass, mass effect, or midline shift. See head CT Cerebral ventricles: No ventriculomegaly. Bones/joints: Unremarkable. No acute fracture. Soft tissues: Unremarkable. PROCEDURE INFORMATION: Exam: CTA Neck With Contrast Exam date and time: 03/19/2023 10:48 PM Age: 67 years old Clinical indication: Stroke-like symptoms; Lt upper extremity and lt lower extremity weakness; Additional info: TIA vs CVA TECHNIQUE: Imaging protocol: Computed tomographic angiography of the neck with contrast. 3D rendering (Not supervised by radiologist): MIP and/or 3D reconstructed images were created by the technologist. Radiation optimization: All CT scans at this facility use at least one of these dose optimization techniques: automated exposure control; mA and/or kV adjustment per patient size (includes targeted exams where dose is matched to clinical indication); or iterative reconstruction. Contrast material: OMNI 350; Contrast volume: 100 ml; Contrast route: INTRAVENOUS (IV); REPORTING DATA: Count of CT and Cardiac NM exams in prior 12 months: This patient has received [address] and 0 known cardiac nuclear medicine studies in the 12 months prior to the current study. COMPARISON: CT angio chest [id number] 01/19/2023 4:49 PM RADIATION DOSE METRICS: Total DLP (mGy-cm): 498.66 FINDINGS: Right common carotid artery: No stenosis. No dissection or occlusion. Right internal carotid artery: No stenosis of the extracranial segment. No dissection or occlusion. Right external carotid artery: No occlusion or stenosis of the origin. Left common carotid artery: No stenosis. No dissection or occlusion. Left internal carotid artery: No stenosis of the extracranial segment. No dissection or occlusion. Left external carotid artery: No occlusion or stenosis of the origin. Right vertebral artery: No stenosis. No dissection or occlusion. Left vertebral artery: The left vertebral artery is dominant. No stenosis. No dissection. Soft tissues: Normal. No significant soft tissue swelling. Bones/joints: No acute fracture. CT/CT angio headneck* [id number] IMPRESSION: No intracranial large vessel critical stenosis or occlusion IMPRESSION: No carotid or vertebral artery stenosis. REFERENCES: NASCET CRITERIA. The degree of stenosis in the cervical segment of the internal carotid artery is based on NASCET criteria. Normal is no stenosis. Mild is less than 50% stenosis. Moderate is 50-69% stenosis. Severe is 70% to 99% stenosis. Total occlusion is no detectable patent lumen.
[2023-03-19] MEDS: iohexol 350 mg/mL 500 mL Btl (per mL) IV (23:13)
[2023-03-19 23:29] LABS: Add Urine Microscopic? NO; Charge for UA Resulting for Rev
[2023-03-19 23:49] LABS: Amphetamines Screen Urine Negative (Negative); Barbiturates Screen Urine Negative (Negative); Benzodiazepines Screen Urine Negative (Negative); Cocaine Screen Urine Negative (Negative); Opiate Screen Urine Positive (Negative); PCP Screen Urine Negative (Negative); THC Screen Urine Negative (Negative)
[2023-03-19 23:53] LABS: Bilirubin Urine Neg (Negative); Blood Urine Neg (Negative); Glucose Urine UA Norm (Normal); Ketones Urine Negative (Negative); Leukocyte Esterase Urine Negative (Negative); Nitrate Urine Negative (Negative); Protein Urine Neg (Negative); Specific Gravity, Urine 1.005 (1.005-1.030); Urine Appearance Clear (CLEAR); Urine Color Light yellow (Yellow); Urobilinogen Urine Neg (Negative); pH Urine 6 (5-7)
[2023-03-20] VITALS (19 sets, daily range): BP systolic 122–162; BP diastolic 65–83; PULSE 70–113; RESP 15–28; TEMP 36.8; O2SAT 92–98; BMI 30.2
[2023-03-20 00:01] LABS: Troponin 5 2HR 6.87 ng/L (0-10)
[2023-03-20 00:13] LABS: Troponin 5 2HR Delta -3.13 ABS# (0-10)
--- NOTE | 2023-03-20 01:25 | USCV_ITS ---
Jimenez Wallis Age: 67 Gender: F : 1955 Exam Date: 03/20/2023 02:13 Ordering Phys: Onesimo Pena MD Technologist: JENNIFER Exam Location: [facility] [place] Indication: left facial droop and left arm weakness episode , now resolved. No history of cardiac intervention per patient. BP: 162 / 75 HR: 105 Rhythm: Sinus Technical Quality: Adequate MEASUREMENTS (Male / Female) Normal Values 2D ECHO LV Diastolic Diameter PLAX 2.6 cm 4.2 - 5.9 / 3.9 - 5.3 cm LV Systolic Diameter PLAX 1.6 cm IVS Diastolic Thickness 1.2 cm 0.6 - 1.0 / 0.6 - 0.9 cm IVS Systolic Thickness 1.2 cm LVPW Diastolic Thickness 1.0 cm 0.6 - 1.0 / 0.6 - 0.9 cm LVPW Systolic Thickness 1.1 cm LVOT Diameter 2.1 cm LV Ejection Fraction 2D Teich 71.7 % LV Ejection Fraction MOD 2C 67.4 % LV Ejection Fraction 2C AL 68.8 % LA Diameter 3.1 cm LA Width 3.4 cm LA Height 5.1 cm RA Width 3.0 cm RA Height 3.9 cm Aorta at Sinotubular Diameter 3.0 cm IVC Diameter 1.4 cm M-MODE Aortic Annulus Diameter 3.3 cm LA Ao Ratio MM 1.0 MV E Point Septal Separation 0.3 cm DOPPLER AV Peak Velocity 178.0 cm/s LVOT Peak Velocity 176.0 cm/s AV Area Cont Eq vti 2.8 cm squared AV Area Cont Eq pk 3.4 cm squared MV Peak Velocity 150.0 cm/s MV Area PHT 2.3 cm squared Mitral E to A Ratio 0.7 MV E' Velocity 54.8 cm/s Mitral E to MV E' Ratio 10.9 Mitral E to LV E' Lateral Ratio 9.5 Mitral E to LV E' Septal Ratio 13.1 TV Peak E Velocity 58.0 cm/s PV Peak Velocity 161.0 cm/s RV Acceleration Time 0.1 s RV Ejection Time 0.3 s RV AcT/ET 0.2 FINDINGS Left Ventricle Normal left ventricular size and systolic function, EF 71 %. No regional wall motion abnormalities. Grade I/IV diastolic dysfunction (abnormal relaxation filling pattern), normal to mildly elevated filling pressures. Right Ventricle The right ventricle is normal in size and function. Right Atrium The right atrium is normal in size. Left Atrium The left atrium is normal in size. Mitral Valve No gross abnormalities noted Aortic Valve No gross abnormalities noted Tricuspid Valve No gross abnormalities noted Pulmonic Valve Trace pulmonary valve regurgitation. Pericardium No pericardial effusion. Aorta Normal ascending aorta dimension. IVC The inferior vena cava appears normal. CONCLUSIONS Normal left ventricular size and systolic function, EF 71 %. No regional wall motion abnormalities. Grade I/IV diastolic dysfunction (abnormal relaxation filling pattern), normal to mildly elevated filling pressures. Trace pulmonary valve regurgitation. There is no pericardial effusion. There are no intracardiac masses. No similar previous studies are available for comparison Dr Cornelius Washington MD FAC (Electronically Signed) Final Date: 20 March 2023 21:31 S
--- NOTE | 2023-03-20 01:25 | MR_ITS ---
WS: [id number] MRI HEAD WITHOUT CONTRAST TECHNIQUE: Sagittal T1, T2 axial, T2 axial FLAIR, axial and coronal T1 images, axial susceptibility w eighted imaging, axial diffusion weighted images, and coronal T2 images were obtained. CLINICAL INFORMATION: tia COMPARISON: CT head March 19, 2023 FINDINGS: Tiny focus of restricted diffusion in the RIGHT posterior limb internal capsule measuring 4 mm consis tent with a small acute lacunar infarct. No other foci of restricted diffusion. Normal posterior liseth a. Normal vascular flow voids at the skull base. No extra-axial fluid collections. No evidence of mas s or mass effect. Mild mucosal thickening in the paranasal sinuses. Mastoid air cells are well aerate d. Moderate small vessel changes with mild parenchymal volume loss. MR/MR head wo con* [id number] IMPRESSION: Somewhat limited examination due to motion artifact. 1. 4 mm acute lacunar infarct along the posterior limb RIGHT internal capsule. 2. No other foci of restricted diffusion. 3. Moderate small vessel changes with mild parenchymal volume loss. 4. No other acute findings. Notified Dr Rodney GUNN at 03/20/2023 12:42 PM.
--- NOTE | 2023-03-20 01:32 | PM.HP ---
Providers/Chief Complaint Admitting Physician: Onesimo Pena MD Primary Care Provider: Denton Hernandez Chief Complaint: STROKE History of Present Illness Jimenez Wallis is a 67 year old female with a past medical history of hypertension, hypothyroidism, history of anemia, hyperlipidemia who presents to [facility] due to concerns for strokelike symptoms. Patient tells me that today was a really stressful day for her today she had to put down her dog today, and on the way home, when they got into the driveway, she started to notice that she was having a productive aphasia, slurred speech, left arm weakness, left facial droop, the symptoms are temporary, and she ignored them and she subsequently went into her home, then over the next 2 hours she had 2 additional episodes, each lasting roughly 10 to 15 minutes, 1 at 530 and 1 at 7:30 PM, similarly left facial droop, slurring of her words, with left-sided weakness, no particular left leg weakness, no paresthesias, after the third episode her called 911, upon arrival her NIH stroke scale was 0, during her ER evaluation, at roughly 715, she started to develop left facial droop, a score was was 4, CT head no acute bleed, [place] [facility] was consulted, teleneurology, Dr. Serrano recommended no tPA due to encephalopathy, patient sleeping, only minimal weakness, recommended CTA head and neck which had no acute findings, and head MRI, hospice team was called for admission, during my evaluation patient is on a stroke scale of 0, she is alert and awake, following all commands, no facial droop no slurring of words, no paresthesias her only complaint is low back pain because of the uncomfortable hospital [facility], and dry mouth, denies any choking, no coughing denies prior history of strokes, no history of atrial fibrillation, no history of palpitations Review of Systems Const: Denies: fever(s) Eyes: Denies: change in vision Card: Denies: chest pain Resp: Denies: dyspnea GI: Denies: abdominal pain : Denies: flank pain Musc: Denies: neck pain Skin/Breast: Denies: rash Neuro: Denies: headache(s) Medications/Allergies Home Medications Medication Instructions Recorded Confirmed Last Taken Type losartan 50 mg tablet 50 mg PO DAILY #90 tabs 07/04/22 03/19/2323 Rx azelastine 137 mcg (0.1 %) nasal 1 spray intranasal BID 07/28/22 03/19/23 Unknown History spray aerosol benzonatate 200 mg capsule 200 mg PO TID PRN cough 30 days 07/28/22 03/19/23 Unknown Rx #90 caps levothyroxine 88 mcg tablet 88 mcg PO DAILY #90 tabs 08/09/22 03/19/23 03/19/23 Rx omeprazole 20 mg capsule,delayed 20 mg PO DAILY #90 caps 09/01/22 03/19/23 03/19/23 Rx release lovastatin 20 mg tablet 40 mg PO DAILY #90 tabs 10/13/22 03/19/23 03/18/23 Rx estradiol 1 mg tablet 0.5 mg PO DAILY #30 tabs 12/03/22 03/19/23 03/19/23 Rx fluticasone propionate 50 1 spray intranasal Q12H PRN Nasal 03/19/23 03/19/23 Unknown History mcg/actuation nasal Congestion spray,suspension (Flonase Allergy Relief) Allergies Allergy/AdvReac Type Severity Reaction Status Date / Time No Known Allergies Allergy Verified 03/19/23 19:48 PFSH Acute PFSH: Medical History Anemia History of high blood pressure Hyperlipidemia Hypertension Hypothyroidism Urinary frequency Surgical History H/O: hysterectomy Hx of cholecystectomy Hx of foot surgery Family History Mother Sleep apnea Cancer breast cancer with lumpectomy May 2022 Father , Age 69 Heart attack Other CAD (coronary artery disease) Denies family history of Diabetes Stroke Social History Smoking and tobacco status: never smoked Alcohol intake: never Substance/Drug Use: never Marital status: Current occupational status: retired Vitals/I&O/Wt Last Vital Signs Temp 98.3 F 03/19/23 19:40 Pulse 103 H 03/20/23 01:15 Resp 16 03/20/23 01:15 BP 162/79 03/20/23 01:15 Pulse Ox 95 03/20/23 01:15 O2 Del Method Room Air 03/20/23 01:15 Weight last 48 hrs Weight 79.379 kg Physical Exam Const: COMMON NORMALS: no acute distress and patient oriented x3 HENMT: COMMON NORMALS: normocephalic HEAD & SCALP: normocephalic Eye: COMMON NORMALS: Equal, round and reactive pupils present and EOMs intact bilaterally Neck/C-Spine: COMMON NORMALS: no JVD Resp: COMMON NORMALS: normal respiratory effort, No retractions, No use of accessory muscles and clear to auscultation bilaterally AUSCULTATION: clear to auscultation bilaterally Cardio: COMMON NORMALS: no JVD, regular rate, regular rhythm, S1 normal heart sound present and S2 normal heart sound present RATE: regular rate RHYTHM: regular rhythm HEART SOUNDS: S1 normal heart sound present and S2 normal heart sound present GI: COMMON NORMALS: Normal to inspection, nondistended, normoactive bowel sounds present, Soft to palpation and non-tender PALPATION: Yes Soft to palpation Extremity: COMMON NORMALS: no pedal edema Neuro: COMMON NORMALS: patient oriented x3, CN's II-XII intact bilaterally, moves all extremities and no focal motor deficits Psych: COMMON NORMALS: mental status grossly normal Urinary Catheter Management: Angel: Cath Placed During This Visit: yes Urinary Catheter Date of Insertion: 03/20/23 Urinary Catheter Time of Insertion: 21:40 Data 03/19/23 20:02 03/19/23 20:02 A&P Assessment and plan (1) TIA (transient ischemic attack): (2) Hypertensive urgency: (3) Hyperlipidemia: (4) Hypothyroidism: (5) Hypertension: Plan Transient ischemic attack -Currently asymptomatic, NIH stroke scale 0, deemed not a tPA candidate -Neurochecks, aspiration precautions, night stroke scale -PT OT -IV fluids -Blood pressure management -Aspirin, statin -MRI of the brain -Cardiac echo -Telemetry monitoring -A1c, lipid panel, TSH Hypertensive urgency -Norvasc, losartan, add chlorthalidone Attestations Medical Necessity Statement*: Patient requires hospitalization, outpatient with observation, for TIA, hypertensive urgency Diagnoses TIA (transient ischemic attack) G45.9 Hypertensive urgency I16.0 Hyperlipidemia E78.5 Hypothyroidism E03.9 Hypertension I10
[2023-03-20 01:58] LABS: Chol HDL Ratio 3.57 mg/dL (0.0-4.40); Cholesterol 193 mg/dL (0-200); HDL Cholesterol 54 mg/dL (60-100); LDL Cholesterol Calculated 122 mg/dL (50-129); LDL HDL Ratio 2.26 RATIO (0.00-3.22); Thyroid Stimulating Hormone 0.95 uIU/mL (0.27-4.20); Triglycerides 85 mg/dL (0-150)
[2023-03-20 01:59] LABS: NT Pro B Type Natriuretic Pept 155 pg/mL (0-125)
[2023-03-20 02:00] LABS: Estmated Average Glucose 100; Hemoglobin A1C 5.1 % (4.0-6.0)
[2023-03-20 02:55] LABS: Troponin 5 6HR 9.77 ng/L (0-10)
[2023-03-20 03:07] LABS: Troponin 5 6HR Delta -0.23 ng/L (0-12)
[2023-03-20] MEDS: enoxaparin 40 mg/0.4 mL Syringe SUBCUT (04:30)
[2023-03-20] MEDS: levothyroxine 88 mcg Tablet PO (04:31)
[2023-03-20] MEDS: sodium chloride 0.9% 1,000 ML 125 ML IV ×2 (04:31→11:25)
[2023-03-20 09:44] LABS: Iron 48 ug/dL (37-145); Percent Saturation 19.5 % (20-50); Total Iron Binding Capacity 246 mcg/dl; Unsaturated Iron Binding 198 ug/dL (112-347)
[2023-03-20 09:56] LABS: Folate Level 6.2 ng/mL (4.8-37.3)
[2023-03-20 09:57] LABS: Vitamin B12 169 pg/mL (232-1245)
[2023-03-20] MEDS: aspirin 81 mg EC Tablet PO (10:58)
[2023-03-20] MEDS: losartan 50 mg Tablet PO (10:58)
[2023-03-20] MEDS: pantoprazole DR 40 mg Tablet PO (10:58)
[2023-03-20] MEDS: atorvastatin 40 mg Tablet 20 MG PO (10:58)
[2023-03-20] MEDS: estradiol 1 mg Tablet 0.5 MG PO (11:23)
[2023-03-20] MEDS: cyanocobalamin 1,000 mcg/mL SDV 1000 MCG IM (14:46)
--- NOTE | 2023-03-20 14:54 | PM.DCS ---
Discharge Providers Date of Admission: 03/20/23 00:32 Date of Discharge: March 20, 2023 Attending Provider at Admission: Onesimo Pena MD Attending Provider at Discharge: Archie Stevens MD Consults: Telemetry neurology?[facility] Primary Care Provider: Denton Hernandez Diagnoses at Discharge Discharge Diagnosis (1) TIA (transient ischemic attack): Status: Acute (2) Hypertensive urgency: Status: Acute (3) Hyperlipidemia: Status: Acute (4) Hypothyroidism: Status: Acute (5) Hypertension: Status: Acute Reason for Visit Reason for Visit: STROKE Brief History: History as per HPI: Jimenze Wallis is a 67 year old female with a past medical history of hypertension, hypothyroidism, history of anemia, hyperlipidemia who presents to [facility] due to concerns for strokelike symptoms.? Patient tells me that today was a really stressful day for her today she had to put down her dog today, and on the way home, when they got into the driveway, she started to notice that she was having a productive aphasia, slurred speech, left arm weakness, left facial droop, the symptoms are temporary, and she ignored them and she subsequently went into her home, then over the next 2 hours she had 2 additional episodes, each lasting roughly 10 to 15 minutes, 1 at 530 and 1 at 7:30 PM, similarly left facial droop, slurring of her words, with left-sided weakness, no particular left leg weakness, no paresthesias, after the third episode her called 911, upon arrival her NIH stroke scale was 0, during her ER evaluation, at roughly 715, she started to develop left facial droop, a score was was 4, CT head no acute bleed, [place] neurology was consulted, teleneurology, Dr. Serrano recommended no tPA due to encephalopathy, patient sleeping, only minimal weakness, recommended CTA head and neck which had no acute findings, and head MRI, hospice team was called for admission, during my evaluation patient is on a stroke scale of 0, she is alert and awake, following all commands, no facial droop no slurring of words, no paresthesias her only complaint is low back pain because of the uncomfortable hospital gurney, and dry mouth, denies any choking, no coughing denies prior history of strokes, no history of atrial fibrillation, no history of palpitations. Hospital Course Hospital Course Patient was admitted to the hospital further evaluation and management of a possible stroke. She underwent MRI which confirmed a lacunar stroke. During hospitalization she continued to improve and her hospitalization remained unremarkable. She was seen by PT/OT and speech therapy. Physical therapy recommended for her to have home exercise program. She has been discharged in hemodynamically stable condition with home exercise program on baby aspirin, her lovastatin has been changed to high intensity atorvastatin 80 mg oral daily. She is to check her blood pressure daily at home and maintain a blood pressure diary and follow-up with a primary care provider within next 1 week for further adjustment of antihypertensives. Goal blood pressure would be less than 140/90 mmHg. Her blood pressures continue to remain more than 140 she is to increase her dose of losartan to 75 mg. Discharge plan discussed in detail with the patient and she verbalized understanding. Physical Exam Const: COMMON NORMALS: no acute distress and patient oriented x3 HENMT: COMMON NORMALS: normocephalic HEAD & SCALP: normocephalic Eye: COMMON NORMALS: Equal, round and reactive pupils present and EOMs intact bilaterally PUPIL: Yes Equal, round and reactive pupils present Neck/C-Spine: COMMON NORMALS: no JVD Resp: COMMON NORMALS: normal respiratory effort, No retractions, No use of accessory muscles and clear to auscultation bilaterally AUSCULTATION: clear to auscultation bilaterally Cardio: COMMON NORMALS: no JVD, regular rate, regular rhythm, S1 normal heart sound present and S2 normal heart sound present RATE: regular rate RHYTHM: regular rhythm HEART SOUNDS: S1 normal heart sound present and S2 normal heart sound present GI: COMMON NORMALS: Normal to inspection, nondistended, normoactive bowel sounds present, Soft to palpation and non-tender PALPATION: Yes Soft to palpation Extremity: COMMON NORMALS: no pedal edema Neuro: COMMON NORMALS: patient oriented x3, CN's II-XII intact bilaterally, moves all extremities and no focal motor deficits Psych: COMMON NORMALS: mental status grossly normal Urinary Catheter Management: Angel: Cath Placed During This Visit: yes Reason for Continuing Indwelling Catheter: Other Urinary Catheter Date of Insertion: 03/20/23 Urinary Catheter Time of Insertion: 21:40 Discharge Data Studies Completed and Pending Completed Studies During Hospitalization Category Date Time Status CT head wo con* [id number] Stat Cat Scan 03/19/23 19:43 Completed CTA head neck [CT angio headneck* [id number]] Stat Cat Scan 03/19/23 22:02 Completed MR head wo con* [id number] Stat MRI 03/20/23 01:25 Completed Pending at discharge Category Date Time Status Complete Blood Count w/Auto AM LABS Lab 03/21/23 04:00 Ordered Comprehensive Metabolic Panel AM LABS Lab 03/21/23 04:00 Ordered CV. echo complete* [id number] Stat Ultrasound 03/20/23 01:25 Taken Radiology Impressions Head CT 03/19/23 19:43 IMPRESSION: 1. Mild chronic microvascular disease. 2. No acute intracranial lesion or injury ASSESSMENT: ASPECTS ([place] Stroke Program Early CT Score) is 10. Head/Neck CTA 03/19/23 22:02 IMPRESSION: No intracranial large vessel critical stenosis or occlusion IMPRESSION: No carotid or vertebral artery stenosis. REFERENCES: NASCET CRITERIA. The degree of stenosis in the cervical segment of the internal carotid artery is based on NASCET criteria. Normal is no stenosis. Mild is less than 50% stenosis. Moderate is 50-69% stenosis. Severe is 70% to 99% stenosis. Total occlusion is no detectable patent lumen. Head MRI 03/20/23 01:25 IMPRESSION: Somewhat limited examination due to motion artifact. 1. 4 mm acute lacunar infarct along the posterior limb RIGHT internal capsule. 2. No other foci of restricted diffusion. 3. Moderate small vessel changes with mild parenchymal volume loss. 4. No other acute findings. Notified Dr Rodney GUNN at 03/20/2023 12:42 PM. Laboratory Results WBC 8.1 10^3/uL (4.0-10.0) 03/19/23 20:02 RBC 4.78 10^6/uL (4.1-5.3) 03/19/23 20:02 Hgb 14.0 g/dL (11.5-15.3) 03/19/23 20:02 Hct 42.4 % (37.0-47.0) 03/19/23 20:02 MCV 88.7 fl (81-99) 03/19/23 20:02 MCH 29.3 pg (28.0-34.0) 03/19/23 20:02 MCHC 33.0 g/dL (30.0-36.0) 03/19/23 20: RDW 13.1 % (12.1-15.1) 03/19/23 20: Plt Count 207 10^3/cmm (130-400) 03/19/23 20:02 MPV 10.7 fL (7.4-10.4) H 03/19/23 20:02 Neut % (Auto) 49.9 % 03/19/23 20:02 Lymph % (Auto) 39.4 % 03/19/23 20:02 [place] % (Auto) 9.2 % 03/19/23 20: Eos % (Auto) 0.9 % 03/19/23 20: Baso % (Auto) 0.4 % 03/19/23 20: Neut # (Auto) 4.03 10^3/uL (1.8-7.7) 03/19/23 20: Lymph # (Auto) 3.2 10^3/uL (0.8-4.8) 03/19/23 20:02 [place] # (Auto) 0.7 10^3/uL (0.2-0.9) 03/19/23 20:02 Eos # (Auto) 0.1 10^3/uL (0.0-0.8) 03/19/23 20:02 Baso # (Auto) 0.0 10^3/uL (0.0-0.1) 03/19/23 20: Nucleated RBC % (auto) 0 % 03/19/23 20: Nucleated RBCs # 0.0 /100WBC 03/19/23 20: PT 13.20 SECONDS (12.1-14.9) 03/19/23 20: INR 0.97 (0.8-1.2) 03/19/23 20:02 APTT 22.8 SECONDS (23.9-36.7) L 03/19/23 20:02 Sodium 144 mmol/L (136-145) 03/19/23 20:02 Potassium 3.7 mmol/L (3.5-5.1) 03/19/23 20:02 Chloride 106 mmol/L (98-107) 03/19/23 20:02 Carbon Dioxide 28 mmol/L (22-29) 03/19/23 20:02 Anion Gap 13.7 (5-19) 03/19/23 20:02 BUN 9 mg/dL (8-23) 03/19/23 20:02 Creatinine 0.7 mg/dL (0.5-0.9) 03/19/23 20:02 GFR Calculation 83.5 mL/min (90-130) L 03/19/23 20:02 Glucose 85 mg/dL (65-115) 03/19/23 20:02 POC Glucose 102 mg/dL (70-110) 03/19/23 21:42 Estimat Average Glucose 100 03/19/23 20:02 Hemoglobin A1c 5.1 % (4.0-6.0) 03/19/23 20:02 Calculated Osmolality 296 mOsm/kg (285-295) H 03/19/23 20:02 Calcium 8.7 mg/dL (8.5-10.5) 03/19/23 20:02 Iron 48 ug/dL (37-145) 03/20/23 02:04 TIBC 246 mcg/dl 03/20/23 02:04 % Saturation 19.5 % (20-50) L 03/20/23 02:04 Unsat Iron Binding 198 ug/dL (112-347) 03/20/23 02:04 Total Bilirubin 1.0 mg/dL (0.15-1.2) 03/19/23 20:02 AST 14 U/L (0-32) 03/19/23 20:02 ALT 13 U/L (0-33) 03/19/23 20:02 Alkaline Phosphatase 72 U/L (35-105) 03/19/23 20:02 Troponin T Baseline 10 ng/L (0-10) 03/19/23 20:02 Troponin T 120 Minute 6.87 ng/L (0-10) 03/19/23 23:40 Delta Troponin T -3.13 ABS# (0-10) L 03/19/23 23:40 Troponin T Hi Sens 6Hr 9.77 ng/L (0-10) 03/20/23 02:04 Troponin T Hi Sens 6Hr Delta -0.23 ng/L (0-12) L 03/20/23 02:04 NT-Pro-B Natriuret Pep 155 pg/mL (0-125) H 03/19/23 23:40 Total Protein 6.3 g/dL (6.6-8.7) L 03/19/23 20:02 Albumin 3.9 g/dL (3.5-5.2) 03/19/23 20:02 Globulin 2.4 g/dL (1.3-4.6) 03/19/23 20:02 Triglycerides 85 mg/dL (0-150) 03/19/23 23:40 Cholesterol 193 mg/dL (0-200) 03/19/23 23:40 LDL Cholesterol, Calc 122 mg/dL (50-129) 03/19/23 23:40 HDL Cholesterol 54 mg/dL (60-100) L 03/19/23 23:40 LDL/HDL Ratio 2.26 RATIO (0.00-3.22) 03/19/23 23:40 Cholesterol/HDL Ratio 3.57 mg/dL (0.0-4.40) 03/19/23 23:40 Vitamin B12 169 pg/mL (232-1245) L 03/20/23 02:04 Folate 6.2 ng/mL (4.8-37.3) 03/19/23 20:02 TSH 0.95 uIU/mL (0.27-4.20) 03/19/23 23:40 Urine Color Light yellow (Yellow) 03/19/23 23: Urine Appearance Clear (CLEAR) 03/19/23 23:22 Urine pH 6 (5-7) 03/19/23 23:22 Ur Specific [place] 1.005 (1.005-1.030) 03/19/23 23:22 Urine Protein Neg (Negative) 03/19/23 23:22 Urine Glucose (UA) Norm (Normal) 03/19/23 23:22 Urine Ketones Negative (Negative) 03/19/23 23: Urine Blood Neg (Negative) 03/19/23 23: Urine Nitrate Negative (Negative) 03/19/23 23: Urine Bilirubin Neg (Negative) 03/19/23 23:22 Urine Urobilinogen Neg mg/dL (Negative) 03/19/23 23:22 Ur Leukocyte Esterase Negative (Negative) 03/19/23 23:22 Urine Opiates Screen Positive ng/mL (Negative) H 03/19/23 23:22 Ur Barbiturates Screen Negative ng/mL (Negative) 03/19/23 23:22 Ur Phencyclidine Scrn Negative ng/mL (Negative) 03/19/23 23:22 Ur Amphetamines Screen Negative ng/mL (Negative) 03/19/23 23:22 U Benzodiazepines Scrn Negative ng/mL (Negative) 03/19/23 23:22 Urine Cocaine Screen Negative ng/mL (Negative) 03/19/23 23:22 U Marijuana (THC) Screen Negative ng/mL (Negative) 03/19/23 23:22 Vitals Last Vital Signs Temp 98.3 F 03/20/23 04:00 Pulse 77 03/20/23 05:35 Resp 24 H 03/20/23 04:00 BP 132/68 03/20/23 10:58 Pulse Ox 96 03/20/23 04:00 O2 Del Method Room Air 03/20/23 03:57 O2 Flow Rate 0 03/20/23 03:48 Discharge Plan Discharge Patient Disposition: Home Condition: Stable Prescriptions: New aspirin 81 mg Tablet,Delayed Release (Dr/Ec) 81 mg PO DAILY Qty: 30 0RF atorvastatin 80 mg tablet 80 mg PO DAILY Qty: 30 0RF Continued azelastine 137 mcg (0.1 %) aerosol,spray 1 spray intranasal BID Rx Instructions: administer into each nostril benzonatate 200 mg capsule 200 mg PO TID PRN (Reason: cough) 30 Days Qty: 90 4RF losartan 50 mg tablet 50 mg PO DAILY Qty: 90 3RF levothyroxine 88 mcg tablet 88 mcg PO DAILY Qty: 90 1RF omeprazole 20 mg capsule,delayed release(DR/EC) 20 mg PO DAILY Qty: 90 3RF estradiol 1 mg tablet 0.5 mg PO DAILY Qty: 30 11RF Flonase Allergy Relief 50 mcg/actuation spray,suspension 1 spray intranasal Q12H PRN (Reason: Nasal Congestion) Rx Instructions: administer into each nostril Discontinued lovastatin 20 mg tablet 40 mg PO DAILY Qty: 90 3RF Discharge Orders: Discharge Order (Routine); Ordered 03/20/23 Ordered By: Archie Stevens Referrals: Denton Hernandez, BIOLOGY LECTURER [Primary Care Provider] - 1 week (Please call Denton Hernandez's Office on Thursday at [phone] to schedule a follow up appointment. Thank you.) Maurilio Alston MD [Physician] - 2 weeks Discharge Diet: Cardiac Discharge Activity: Resume usual activity and Increase activity as tolerated Patient Instructions: Ischemic Stroke (DC), Ischemic Stroke (GEN), Opioid Safety Activity Restrictions/Additional Instructions: Goal blood pressure is less than 140/90 mmHg. Lovastatin has been changed to atorvastatin 80 mg oral daily. Baby aspirin has been added to your medication list. If blood pressure consistently stays over 140/90 mmHg increase your home dose of losartan to 75 mg oral daily. Check blood pressures daily and maintain a blood pressure diary and follow-up with a primary care provider within next 1 weeks for further adjustment of antihypertensives. Discharge Attestations Time Spent in Discharge Care*: greater than 30 min Specific Discharge Activities: educating patient, discussing with pcp/other providers, discussing with machine adjuster leader case trim/social workers/dc planners, documenting/other paperwork and evaluating patient/reviewing data Status at Discharge: Cognitive status at discharge: cognitively intact, Behavioral status at discharge: cooperative, Functional status at discharge: independent ambulation, Overall status at discharge: patient is back to baseline Quality Metrics Clinical Quality Measures [ Cerebrovascular Accident { Contraindication to Antithrombotic: None; antithrombotic prescribed; Contraindication to Anticoagulation: Overlap treatment not indicated; Contraindication to Statin: None; Statin prescribed; Contraindication to tPA: Treatment not indicated;}] Coding Level of Care Code Acute Code for Chg Fwd Diagnoses TIA (transient ischemic attack) G45.9 Hypertensive urgency I16.0 Hyperlipidemia E78.5 Hypothyroidism E03.9 Hypertension I10
--- NOTE | 2023-03-20 16:00 | PC.NURSE ---
Discharge education printed and reviewed with patient. All questions regarding discharge answered. New, current and discontinued medications reviewed. IV removed and patient discharged home.
== END 2023-03-20 16:00 | disposition home or self-care (01) ==
LOC: ER 21:43 → CSU 03-20 06:25
PROVIDERS: Admitting Provider Family Medicine; Emergency Provider Emergency Medicine; PCP Clinical Nurse Specialist Adult Health; Visit Provider Student in an Organized Health Care Education/Training Program
DX: G45.9 Transient cerebral ischemic attack, unspecified (principal); I16.0 Hypertensive urgency; E78.5 Hyperlipidemia, unspecified; E03.9 Hypothyroidism, unspecified; I10 Essential (primary) hypertension; Z86.2 Personal history of diseases of the blood and blood-forming organs and certain disorders involving the immune mechanism
CPT/HCPCS: 36415; 36416; 51702; 70450; 70496; 70498; 70551; 80053; 80061; 80306; 81003; 82607; 82746; 82962; 83036; 83540; 83550; 83880; 84443; 84484; 85025; 85610; 85730; 92523; 92610; 93005; 93306; 96372; 96374; 96375; 96376; 97161; 97165; 99285; G0378; J0360; J0780; J1650; J3420; J7030; J8499; Q9967

== ENCOUNTER → 2023-04-13 10:43 | Outpatient (BNVA) | payer MEDICARE, SELFPAY | PROVIDERS: PCP Clinical Nurse Specialist Adult Health; Visit Provider Psychiatry & Neurology Neurology | DX: I10 Essential (primary) hypertension (principal); E03.9 Hypothyroidism, unspecified; Z86.73 Personal history of transient ischemic attack (TIA), and cerebral infarction without residual deficits | CPT/HCPCS: 99203 ==

== ENCOUNTER 2023-04-24 14:33 | Outpatient (CLI) | payer MEDICARE, SELFPAY ==
--- NOTE | 2023-04-24 14:44 | MM_ITS ---
WS: [id number] BILATERAL 3D TOMOSYNTHESIS DIGITAL SCREENING MAMMOGRAPHY WITH CAD CLINICAL INFORMATION: SCREEN HISTORY: Screening mammogram. No current complaints. COMPARISON: 2021 TECHNIQUE: Bilateral CC and MLO views. FINDINGS: Scattered fibroglandular densities bilaterally. No suspicious focal mass, asymmetry, calcifications, or architectural distortion. No evidence of malignancy. MM/[place] [id number] IMPRESSION: BI-RADS: 1-Negative FOLLOW UP: 1 Year Follow-up Recommend return to annual screening mammography.
== END 2023-04-24 14:34 | disposition home or self-care (01) ==
LOC: RAD 14:35
PROVIDERS: PCP Clinical Nurse Specialist Adult Health; Visit Provider Clinical Nurse Specialist Adult Health
DX: Z12.31 Encounter for screening mammogram for malignant neoplasm of breast (principal)
CPT/HCPCS: 77063; 77067

== ENCOUNTER → 2023-06-30 09:13 | Outpatient (BNVA) | payer MEDICARE, SELFPAY | PROVIDERS: PCP Clinical Nurse Specialist Adult Health; Visit Provider Nurse Practitioner Family | DX: R10.9 Unspecified abdominal pain (principal); R35.0 Frequency of micturition | CPT/HCPCS: 81000; 87086 ==

== ENCOUNTER → 2023-07-07 13:16 | Outpatient (BNVA) | payer MEDICARE, SELFPAY | PROVIDERS: PCP Clinical Nurse Specialist Adult Health; Visit Provider Clinical Nurse Specialist Adult Health | DX: R30.0 Dysuria (principal) | CPT/HCPCS: 81000 ==

== ENCOUNTER 2023-07-08 13:11 | Outpatient (CLI) | payer MEDICARE, SELFPAY ==
--- NOTE | 2023-07-08 13:30 | CT_ITS ---
WS: [id number] CT ABDOMEN PELVIS TECHNIQUE: Noncontrast CT of the abdomen and pelvis with coronal and sagittal reformatted images. CLINICAL INFORMATION: hematuria, RLQ pain COMPARISON: CT 09/19/2019 DLP: 535.[address] scans at [facility] use at least one of these dose optimization techniques: automated e xposure control; mA and/or kV adjustment per patient size (includes targeted exams where dose is matc hed to clinical indication); or iterative reconstruction. FINDINGS: Normal noncontrast liver. Prior cholecystectomy. Subsegmental atelectasis in the lung bases. Small es ophageal hiatal hernia. Normal noncontrast pancreas. Adrenal glands are normal. Normal noncontrast sp ricki. Normal caliber abdominal aorta. Sigmoid diverticulosis. No evidence of acute diverticulitis. Inspissated secretions in the appendix. No evidence of acute appendicitis. No hydronephrosis in either kidney. No obstructing renal or ureteral calculi. IMPRESSION: 1. No hydronephrosis in either kidney. No obstructing renal or ureteral calculi. 2. Small esophageal hernia. 3. Prior cholecystectomy. 4. A few inspissated secretions the appendix. No evidence of acute appendicitis.
== END 2023-07-08 13:12 | disposition home or self-care (01) ==
PROVIDERS: PCP Clinical Nurse Specialist Adult Health; Visit Provider Clinical Nurse Specialist Adult Health
DX: R31.9 Hematuria, unspecified (principal); R10.31 Right lower quadrant pain; K44.9 Diaphragmatic hernia without obstruction or gangrene; Z90.49 Acquired absence of other specified parts of digestive tract
CPT/HCPCS: 74176

== ENCOUNTER → 2023-09-10 10:34 | Outpatient (BNVA) | payer MEDICARE, SELFPAY | PROVIDERS: PCP Clinical Nurse Specialist Adult Health; Visit Provider Clinical Nurse Specialist Adult Health | DX: R10.9 Unspecified abdominal pain (principal); E03.9 Hypothyroidism, unspecified | CPT/HCPCS: 80053; 82150; 83690; 84443; 85025; 85651; 86140 ==

== ENCOUNTER → 2023-09-21 13:58 | Outpatient (BNVA) | payer MEDICARE, SELFPAY | PROVIDERS: PCP Clinical Nurse Specialist Adult Health; Visit Provider Psychiatry & Neurology Neurology | DX: R29.90 Unspecified symptoms and signs involving the nervous system (principal) | CPT/HCPCS: 99212 ==

== ENCOUNTER → 2023-12-23 07:44 | Outpatient (BNVA) | payer MEDICARE, SELFPAY | PROVIDERS: PCP Clinical Nurse Specialist Adult Health; Visit Provider Clinical Nurse Specialist Adult Health | DX: N39.0 Urinary tract infection, site not specified (principal) | CPT/HCPCS: 81000; 87086 ==

== ENCOUNTER 2024-01-07 05:58 | Emergency (ER) | payer MEDICARE, SELFPAY ==
[2024-01-07] VITALS (14 sets, daily range): BP systolic 109–239; BP diastolic 44–92; PULSE 66–76; RESP 14–21; TEMP 36.7; O2SAT 94–97
--- NOTE | 2024-01-07 06:00 | XRR_ITS ---
PROCEDURE INFORMATION: Exam: XR Chest Exam date and time: 01/07/2024 6:11 AM Age: 68 years old Clinical indication: Other: Chest pain TECHNIQUE: Imaging protocol: Radiologic exam of the chest. Views: 1 view. COMPARISON: No relevant prior studies available. FINDINGS: Lungs: Platelike opacity in the left lateral lower lung field. Pleural spaces: Unremarkable. No pleural effusion. No pneumothorax. Heart/Mediastinum: Unremarkable. No cardiomegaly. Bones/joints: Visualized degenerative changes of the osseous structures. XR/XR chest 1V portable [id number] IMPRESSION: 1. No acute cardiopulmonary findings. 2. Platelike atelectasis in the left lateral lower lung field 3. No displaced rib fractures.
--- NOTE | 2024-01-07 06:02 | ECG_ITS ---
[facility] Test Date: 2024-01-07 Pat Name: Jimenez Wallis Department: Room: Gender: Female Resource Program Teacher: : 1955 Requested By: Abdulaziz Pabon Order Number: [id number] Deisy MD: Dick Robison M.D. Measurements Intervals [place] Rate: 70 P: 62 ND: 181 QRS: 25 QRSD: 90 T: 65 QT: 391 QTc: 424 Interpretive Statements SINUS RHYTHM MODERATE ST DEPRESSION [0.05+ mV ST DEPRESSION] Compared to ECG 03/19/2023 19:56:16 Sinus bradycardia no longer present ST (T wave) deviation still present Electronically Signed On 01-07-2024 11:38:49 CATH LAB TECHNOLOGIST by Dick Robison M.D. [email or web address]
--- NOTE | 2024-01-07 06:04 | ED_ITS ---
HPI - Chest Pain 2 General: Chief Complaint: Chest Pain Stated Complaint: chest pain Time Seen by Provider: 01/07/24 06:00 Source: patient Mode of arrival: ambulatory History of Present Illness: 68-year-old female presents emergency ro om complaining of chest pain for the last several days. worsened the last 2 days. No history of known CAD. She had not noted any exacerbating or relieving factors to it she has had some weakness in her arms some nausea with vomiting. No hematemesis no coffee-ground emesis. No associated shortness of breath MD complaint: chest pain Onset (ago): day(s) (5) Timing of current episode: episodic Onset: during rest Pain location: substernal Pain radiation: right arm and left arm Severity: mild Quality: aching and heaviness Relieving factors: nothing Exacerbating factors: nothing Associated symptoms: Deny abdominal pain, diaphoresis, dyspnea, fever(s), leg edema, nausea, palpitations, sense of impending doom, syncope or vomiting Treatment prior to arrival: aspirin (81) Review of Systems 2 Const: Denies: fever(s), chills or diaphoresis Card: Reports: chest pain; Denies: palpitations, irregular heart rhythm, edema, swelling of feet/ankles, syncope, dyspnea on exertion or orthopnea Resp: Denies: dyspnea GI: Denies: abdominal pain, nausea or vomiting : Denies: dysuria, urinary frequency or urinary urgency Musc: Denies: neck pain or back pain Skin/Breast: Denies: rash PFSH ED 2 PFSH: Medical History Hypertension Hypothyroidism Hyperlipidemia Insomnia Urinary frequency Anemia Lumbar radiculopathy TIA (transient ischemic attack) Lacunar infarction Surgical History Hx of foot surgery Hx of cholecystectomy H/O: hysterectomy Family History Mother Sleep apnea Cancer breast cancer with lumpectomy May 2022 Father , Age 69 Heart attack Other CAD (coronary artery disease) Denies family history of Diabetes Stroke Social History Smoking and tobacco/nicotine status: never used tobacco/nicotine Alcohol intake: never Substance/Drug Use: never Marital status: Current occupational status: retired Physical Exam 2 Const: COMMON NORMALS: no acute distress GENERAL APPEARANCE: cooperative and comfortable ORIENTATION/CONSCIOUSNESS: Yes awake, Yes oriented to person, Yes oriented to place and Yes oriented to time HENMT: COMMON NORMALS: normocephalic, atraumatic and hearing grossly normal bilaterally HEAD & SCALP: normocephalic and atraumatic Resp: COMMON NORMALS: normal respiratory effort, No retractions, No use of accessory muscles and clear to auscultation bilaterally AUSCULTATION: clear to auscultation bilaterally Cardio: COMMON NORMALS: regular rate, regular rhythm and No murmurs present (Cardio) RATE: regular rate RHYTHM: regular rhythm GI: COMMON NORMALS: Soft to palpation and No hepatosplenomegaly present A USCULTATION: Yes normoactive bowel sounds PALPATION: Yes Soft to palpation, No Tenderness to palpation present (GI), No Guarding due to palpation present (GI) and Yes No hepatosplenomegaly present Extremity: COMMON NORMALS: normal to inspection, capillary refill normal, no clubbing, cyanosis or edema, no calf tenderness and no pedal edema Neuro: SENSORIUM/ORIENTATION: Yes oriented to person, Yes oriented to place and Yes oriented to time Skin: COMMON NORMALS: no rashes or lesions noted GENERAL SKIN EXAM: no rashes or lesions noted Course 2 Vital Signs: Vital signs: Vital Signs Temperature 98.1 F 01/07/24 06:01 Pulse Rate 66 01/07/24 10:00 Respiratory Rate 14 01/07/24 06:35 Blood Pressure 134/66 01/07/24 10:00 Pulse Oximetry 96 01/07/24 10:00 Oxygen Delivery Me thod Room Air 01/07/24 10:00 MDM - Chest Pain Medical Decision Making Patient asymptomatic in the emergency room. She did not had any further episodes. EKG does not show any acute changes cardiac enzymes are negative chest x-ray unremarkable will discharge patient home set up for outpatient Lexiscan sestamibi stress test return if has further symptoms Medical Records I reviewed the patient's medical records. Lab Data I reviewed the patient's lab results. 01/07/24 06:06 01/07/24 06:06 Radiology Impressions Chest X-Ray 01/07/24 06:00 IMPRESSION: 1. No acute cardiopulmonary findings. 2. Platelike atelectasis in the left lateral lower lung field 3. No displaced rib fractures. Laboratory Results WBC 7.35 10^3/uL (3.29-11.43) 01/07/24 06:06 RBC 4.75 10^6/uL (3.85-5.65) 01/07/24 06:06 Hgb 14.20 g/dL (11.27-16.99) 01/07/24 06:06 Hct 42.7 % (36-47) 01/07/24 06:06 MCV 89.9 fl (85-98) 01/07/24 06:06 MCH 29.9 pg (27-33) 01/07/24 06:06 MCHC 33.3 g/dL (30-55) 01/07/24 06:06 RDW 12.6 % (12.1-15.1) 01/07/24 06:06 Plt Count 203 10^3/cmm (157-399) 01/07/24 06:06 MPV 9.7 fL (7.4-10.4) 01/07/24 06:06 Neut % (Auto) 43.7 % 01/07/24 06:06 Lymph % (Auto) 45.0 % 01/07/24 06:06 [place] % (Auto) 9.0 % 01/07/24 06:06 Eos % (Auto) 1.6 % 01/07/24 06:06 Baso % (Auto) 0.4 % 01/07/24 06:06 Neut # (Auto) 3.21 10^3/uL (1.8-7.7) 01/07/24 06:06 Lymph # (Auto) 3.3 10^3/uL (0.8-4.8) 01/07/24 06:06 [place] # (Auto) 0.7 10^3/uL (0.2-0.9) 01/07/24 06:06 Eos # (Auto) 0.1 10^3/uL (0.0-0.8) 01/07/24 06:06 Baso # (Auto) 0.0 10^3/uL (0.0-0.1) 01/07/24 06:06 Nucleated RBC % (auto) 0 % 01/07/24 06:06 Nucleated RBCs # 0.0 /100WBC 01/07/24 06:06 Specimen Type Arterial 01/07/24 07:01 Sample Site Radial, left 01/07/24 07:01 ABG pH 7.49 (7.35-7.45) H 01/07/24 07:01 ABG pCO2 34.1 mmHg (35-45) L 01/07/24 07:01 ABG pO2 92.2 mmHg (80.0-100.0) 01/07/24 07:01 ABG PO2/FiO2 Ratio 0 01/07/24 07:01 ABG HCO3 25.7 mmol/L (22-26) 01/07/24 07:01 ABG O2 Saturation 97.8 01/07/24 07:01 ABG Base Excess 2.7 mmol/L (-2.0-2.0) H 01/07/24 07:01 Joon Test Pos 01/07/24 07:01 A-a O2 Gradient 1.8 mmHg (5-10) L 01/07/24 07:01 Hematocrit 44.8 % (37-47) 01/07/24 07:01 Hgb O2 Saturation 96.9 % (95-100) 01/07/24 07:01 Carboxyhemoglobin 0.3 %THgb (0.4-20.1) L 01/07/24 07:01 Methemoglobin 0.6 % (0.4-1.5) 01/07/24 07:01 Total Hemoglobin 14.6 g/dL (12-16) 01/07/24 07:01 Sodium 143.0 mmol/L (131-143) 01/07/24 07:01 Potassium 3.0 mmol/L (3.5-5.0) L 01/07/24 07:01 Glucose 104.0 mg/dL (70-115) 01/07/24 07:01 Ionized Calcium 1.2 mmol/L (1.1-1.4) 01/07/24 07:01 O2 Delivery Device Room air 01/07/24 07:01 FiO2 21.0 % 01/07/24 07:01 Deli Slicer ID Cak 01/07/24 07:01 Sodium 142 mmol/L (136-145) 01/07/24 06:06 Potassium 3.4 mmol/L (3.5-5.1) L 01/07/24 06:06 Chloride 104 mmol/L (98-107) 01/07/24 06:06 Carbon Dioxide 25 mmol/L (22-29) 01/07/24 06:06 Anion Gap 16.4 (5-19) 01/07/24 06:06 BUN 9 mg/dL (8-23) 01/07/24 06:06 Creatinine 0.6 mg/dL (0.5-0.9) 01/07/24 06:06 GFR Calculation 99.4 mL/min (90-130) 01/07/24 06:06 Glucose 108 mg/dL (65-115) 01/07/24 06:06 Calculated Osmolality 293 mOsm/kg (285-295) 01/07/24 06:06 Calcium 8.8 mg/dL (8.5-10.5) 01/07/24 06:06 Total Bilirubin 1.6 mg/dL (0.15-1.2) H 01/07/24 06:06 AST 16 U/L (0-32) 01/07/24 06:06 ALT 16 U/L (0-33) 01/07/24 06:06 Alkaline Phosphatase 75 U/L (35-105) 01/07/24 06:06 Troponin T Baseline 7 ng/L (0-10) 01/07/24 06:06 Troponin T 120 Minute 6.21 ng/L (0-10) 01/07/24 07:57 Delta Troponin T -0.79 ABS# (0-10) L 01/07/24 07:57 Total Protein 6.1 g/dL (6.6-8.7) L 01/07/24 06:06 Albumin 4.1 g/dL (3.5-5.2) 01/07/24 06:06 Globulin 2.0 g/dL (1.3-4.6) 01/07/24 06:06 All radiology interpretation(s) finalized by discharge Discharge Plan Discharge Patient Disposition: Home Clinical Impression: Atypical chest pain Prescriptions: No Action Sudafed 24 Hour 240 mg Tablet Extended Release 24 Hr 240 mg PO DAILY PRN (Reason: Sinus Symptoms) losartan 50 mg tablet 50 mg PO QAM atorvastatin 80 mg tablet 80 mg PO QAM aspirin 81 mg tablet,delayed release (DR/EC) 81 mg PO QAM levothyroxine 88 mcg tablet 88 mcg PO QAM estradiol 1 mg tablet 0.5 mg PO QAM gabapentin 300 mg capsule 300 mg PO TID PRN (Reason: Pain) omeprazole 20 mg capsule,delayed release(DR/EC) 20 mg PO QAM Discharge Orders: Discharge ED (Routine); Ordered 01/07/24 Ordered By: Abdulaziz Mims Referrals: Denton Hernandez, SUPER[facility]OR [employer] [facility] [Primary Care Provider] - Discharge Diet: Usual diet Discharge Activity: Resume usual activity Patient Instructions: Opioid Safety, Pain Management Activity Restrictions/Additional Instructions: Thank you for choosing [facility] for your healthcare needs today. Please realize this is an emergency room and that we are providing you with a medical screening exam and this may not be complete and all inclusive of all the testing and or work up that you may need to determine your ailment or severity of your illness. It is very important that you follow up as instructed or that you return to the Emergency Department should you have concerns or if your condition changes or worsens in any way. You were seen today for complaints of chest discomfort and numbness tingling your arms. Cardiac enzymes negative EKG did not show any acute changes. Chest x-ray and lab work otherwise were normal. I do recommend that he get an outpatient cardiac stress test rifle case repairer will make arrangements for this for you. Coding Level of Care Code ED Ice Maker for Verna Lorenz
[2024-01-07] MEDS: aspirin 81 mg Chew Tablet 324 MG PO (06:07)
[2024-01-07 06:12] LABS: Basophils % 0.4 %; Eosinophils # 0.1 10^3/uL (0.0-0.8); Eosinophils % 1.6 %; Hematocrit 42.7 % (36-47); Lymphocytes # 3.3 10^3/uL (0.8-4.8); Mean Corpuscular HGB Conc 33.3 g/dL (30-55); Mean Corpuscular Hemoglobin 29.9 pg (27-33); Mean Corpuscular Volume 89.9 fl (85-98); Mean Platelet Volume 9.7 fL (7.4-10.4); Monocytes # 0.7 10^3/uL (0.2-0.9); Neutrophils # 3.21 10^3/uL (1.8-7.7); Neutrophils % 43.7 %; Nucleated Red Blood Cells % 0 %; Platelet Count 203 10^3/cmm (157-399); Red Blood Count 4.75 10^6/uL (3.85-5.65); Red Cell Distribution Width 12.6 % (12.1-15.1); White Blood Count 7.35 10^3/uL (3.29-11.43)
[2024-01-07] MEDS: hyDRALAzine 20 mg/mL INJ 1 mL IVP (06:29)
[2024-01-07 06:30] LABS: Alanine Aminotransferase 16 U/L (0-33); Albumin Level 4.1 g/dL (3.5-5.2); Alkaline Phosphatase 75 U/L (35-105); Anion Gap 16.4 (5-19); Aspartate Amino Transferase 16 U/L (0-32); Blood Urea Nitrogen 9 mg/dL (8-23); Calcium 8.8 mg/dL (8.5-10.5); Carbon Dioxide 25 mmol/L (22-29); Chloride 104 mmol/L (98-107); Glomerular Filtration Rate 99.4 mL/min (90-130); Glucose 108 mg/dL (65-115); Osmolality Calculated 293 mOsm/kg (285-295); Potassium 3.4 mmol/L (3.5-5.1); Sodium 142 mmol/L (136-145); Total Bilirubin 1.6 mg/dL (0.15-1.2); Total Protein 6.1 g/dL (6.6-8.7)
[2024-01-07 06:32] LABS: Troponin(5th) Baseline 7 ng/L (0-10)
[2024-01-07] MEDS: amlodipine 5 mg Tablet PO (06:34)
[2024-01-07] MEDS: losartan 50 mg Tablet PO (06:36)
--- NOTE | 2024-01-07 07:04 | ECG_ITS ---
[facility] Test Date: 2024-01-07 Pat Name: Jimenez Wallis Department: Room: Gender: Female Correctional Guard: : 1955 Requested By: Abdulaziz Pabon Order Number: [id number] Deisy MD: Dick Robison M.D. Measurements Intervals [place] Rate: 82 P: 43 MS: 174 QRS: 15 QRSD: 91 T: 62 QT: 401 QTc: 469 Interpretive Statements SINUS RHYTHM NONSPECIFIC ST & T-WAVE ABNORMALITY Compared to ECG 01/07/2024 06:02:12 T-wave abnormality now present ST (T wave) deviation no longer present Electronically Signed On 01-07-2024 11:39:57 MOTEL FRONT DESK ATTENDANT by Dick Robison M.D. [id number]
[2024-01-07 07:12] LABS: ABG PCO2 34.1 mmHg (35-45); ABG PH Result 7.49 (7.35-7.45); Alveolar-Arterial Oxygen Gradi 1.8 mmHg (5-10); Arterial Blood Gas Hematocrit 44.8 % (37-47); Base Excess ABG 2.7 mmol/L (-2.0-2.0); Blood Gas Allen Test Pos; Blood Gas Operator Identificat CAK; Blood Gas Sample Site Radial, left; Blood Gas Sample Type Arterial; Carboxyhemoglobin 0.3 %THgb (0.4-20.1); HCO3 ABG 25.7 mmol/L (22-26); HGB O2 Sat 96.9 % (95-100); Ionized Calcium Level - ABG 1.2 mmol/L (1.1-1.4); Methemoglobin 0.6 % (0.4-1.5); Oxygen Device ROOM AIR; Oxygen Saturation ABG 97.8; PO2 ABG 92.2 mmHg (80.0-100.0); PO2 FiO2 Ratio Arterial Blood 0; Total Hemoglobin 14.6 g/dL (12-16)
[2024-01-07 08:26] LABS: Troponin 5 2HR 6.21 ng/L (0-10)
[2024-01-07 08:36] LABS: Troponin 5 2HR Delta -0.79 ABS# (0-10)
== END 2024-01-07 10:34 | disposition home or self-care (01) ==
PROVIDERS: Emergency Provider Family Medicine; PCP Clinical Nurse Specialist Adult Health
DX: R07.89 Other chest pain (principal); Z79.82 Long term (current) use of aspirin; I10 Essential (primary) hypertension; E78.5 Hyperlipidemia, unspecified; Z86.73 Personal history of transient ischemic attack (TIA), and cerebral infarction without residual deficits
CPT/HCPCS: 36415; 36600; 71045; 80051; 80053; 82330; 82805; 84484; 85025; 93005; 96374; 99285; J0360

== ENCOUNTER 2024-01-12 11:26 | Outpatient (CLI) | payer MEDICARE, SELFPAY ==
--- NOTE | 2024-01-12 11:32 | XRR_ITS ---
PROCEDURE INFORMATION: Exam: XR Right Elbow Exam date and time: 01/12/2024 11:36 AM Age: 68 years old Clinical indication: Pain; Elbow; Right; Additional info: Right elbow pain, worse when embroidering TECHNIQUE: Imaging protocol: Radiologic exam of the right elbow. Views: 3 or more views. COMPARISON: No relevant prior studies available. FINDINGS: Bones/joints: Normal. Soft tissues: Unremarkable. XR/XR elbow RT min 3V* [id number] IMPRESSION: No acute findings.
== END 2024-01-12 11:27 | disposition home or self-care (01) ==
LOC: RAD 11:28
PROVIDERS: PCP Clinical Nurse Specialist Adult Health; Visit Provider Clinical Nurse Specialist Adult Health
DX: M25.521 Pain in right elbow (principal)
CPT/HCPCS: 73080

== ENCOUNTER 2024-01-21 07:58 | Outpatient (CLI) | payer MEDICARE, SELFPAY ==
[2024-01-21 08:18] VITALS: BMI 29.2
--- NOTE | 2024-01-21 08:18 | NMCV_ITS ---
NM gallo perf SPECT r/s* [id number] Jimenez Wallis Age: 68 Gender: F : 1955 Exam Date: 01/21/2024 08:18 Ordering Phys: Denton Hernandez NP Technologist: EB Fuentes Exam Location: [facility] Indications: CHEST PAIN STRESS TEST Please see separate stress test report in [facility] for full findings IMAGE PROTOCOL Rest/Stress 1 Lexiscan Day Radiopharmaceutical Dose (mCi) Administration Site Administered by Rest: Tc-99m 10.6 IV EB hCo Sestamibi Stress:Tc-99m 32.2 IV EB Cho Sestamibi Rest: 21-Jan-2024 60 Discovery 630 Stress: 21-Jan-2024 30 Discovery 630 0.4mg Lexiscan. Supine position only as patient was unable to lay prone. SPECT RESULTS Technical Quality: Excellent Raw Data Analysis: Normal Image Corrections: No attenuation or motion correction applied Summed Stress Score: 0 Summed Rest Score: 3 Summed Difference Score: 0 PERFUSION FINDINGS Small area of slightly decreased tracer uptake in the inferolateral and apical lateral region, only in the resting manage segmental wall motion analysis revealing no gross wall motion abnormalities FUNCTIONAL RESULTS (calculated via Gated SPECT) Stress Image LV EF (%): 90 Stress EDV (mL):59 TID: 0.89 Stress ESV (mL):6 FUNCTIONAL FINDINGS: Segmental wall motion analysis revealing no gross wall motion abnormalities IMPRESSIONS 1. Myocardial perfusion imaging revealing small area of slightly decreased tracer uptake in the inferolateral and apical lateral region, only with the resting imaging, most likely represent a transient artifact. 2. Normal LV ejection fraction 90%. 3. LV wall motion analysis revealing no gross wall motion abnormalities. 4. Normal LV volume Low probability for coronary ischemia, based on the above findings Dr Cornelius Washington MD FACC (Electronically Signed) Final Date: 21 January 2024 16:30 S
--- NOTE | 2024-01-21 08:18 | ECG_ITS ---
[facility] Test Date: 2024-01-21 Pat Name: Jimenez Wallis Department: Room: Gender: Female Senior Financial Consultant: Kaelyn Avalos : 1955 Requested By: Denton Pabon Order Number: [id number] Reading MD: Cornelius Washington M.D. Interpretive Statements NAME OF STUDY: LEXISCAN SESTAMIBI STRESS TEST INDICATION: Atypical Chest Pain, EXERCISE MIBI ATTEMPED ORDERED , MAXIMAL EFFORT ACHEIVED EXERCISE TIME >7MIN , PT UNABLE TO MEET TARGET HR PROCEDURE: At the baseline, the EKG revealed normal sinus rhythm with some nonspecific ST changes in the inferior leads. The baseline heart was 65 bpm with a blood pressue of 150/72 mm of Hg Lexiscan was infused over a period of 20 seconds. A total of 0.4 milligrams of Lexiscan was infused. The stress phase was continued for a total of 5 minutes. Heart rate at the end of the stress phase was 81 bpm with a blood pressure 134/88 mm of Hg. The EKG at the peak infusion revealed diffuse nonspecific ST change. Sestamibi was injected 20 seconds after the Lexiscan infusion. Heart rate at the end of the recovery phase was 72 bpm with a blood pressure of 134/65 mm of Hg. CONCLUSION: 1. No significant EKG changes with the LexiScan infusion 2. No LexiScan induced chest pain or cardiac arrhythmia 3. Normal blood pressure and heart rate response 4. Sestamibi/sestamibi perfusion scan pending; see separate report. Electronically Signed On 01-23-2024 15:02:34 MANAGER PAYROLL by Cornelius Washington M.D. [id number]
--- NOTE | 2024-01-21 09:48 | PC.NURSE ---
Pt unable to meet target HR on exercise MIBI stress test. Patient exercised greater than 7 minutes and max HR obtained was [address] Washington notified via phone and received verbal orders to proceed with Lexiscan MIBI.
[2024-01-21] MEDS: regadenoson 0.4 Mg/5 ml Syringe IVP (10:02)
[2024-01-21 10:09] VITALS: BP 134/65; PULSE 74
== END 2024-01-21 07:59 | disposition home or self-care (01) ==
PROVIDERS: PCP Clinical Nurse Specialist Adult Health; Visit Provider Clinical Nurse Specialist Adult Health
DX: R07.89 Other chest pain (principal)
CPT/HCPCS: 36415; 78452; 93017; 96374; A9500; J2785

== ENCOUNTER 2024-07-05 10:40 | Outpatient (CLI) | payer MEDICARE, SELFPAY ==
--- NOTE | 2024-07-05 10:47 | MM_ITS ---
WS: [id number] BILATERAL 3D TOMOSYNTHESIS DIGITAL SCREENING MAMMOGRAPHY WITH CAD CLINICAL INFORMATION: SCREENING HISTORY: Screening mammogram. No current complaints. COMPARISON: 2022 TECHNIQUE: Bilateral CC and MLO views. FINDINGS: Scattered fibroglandular densities bilaterally. No suspicious focal mass, asymmetry, calcifications, or architectural distortion. No evidence of malignancy. MM/[place] [id number] IMPRESSION: BI-RADS: 1-Negative FOLLOW UP: 1 Year Follow-up Recommend return to annual screening mammography.
== END 2024-07-05 10:41 | disposition home or self-care (01) ==
LOC: RAD 10:41
PROVIDERS: PCP Clinical Nurse Specialist Adult Health; Visit Provider Clinical Nurse Specialist Adult Health
DX: Z12.31 Encounter for screening mammogram for malignant neoplasm of breast (principal)
CPT/HCPCS: 77063; 77067

== ENCOUNTER → 2024-08-08 14:34 | Outpatient (BNVA) | payer MEDICARE, SELFPAY | PROVIDERS: PCP Clinical Nurse Specialist Adult Health; Visit Provider Nurse Practitioner Family | DX: D48.5 Neoplasm of uncertain behavior of skin (principal); L82.0 Inflamed seborrheic keratosis; L91.8 Other hypertrophic disorders of the skin; L71.8 Other rosacea; D22.39 Melanocytic nevi of other parts of face | CPT/HCPCS: 11102; 17110; 99204 ==

== ENCOUNTER 2024-08-18 06:00 | Outpatient (CLI) | payer MEDICARE, SELFPAY | END 2024-08-18 06:01 | disposition home or self-care (01) | LOC: RAD 09-05 08:08 | PROVIDERS: PCP Clinical Nurse Specialist Adult Health; Visit Provider Clinical Nurse Specialist Adult Health | DX: I10 Essential (primary) hypertension (principal) | CPT/HCPCS: 80053; 80061; 83036; 85025 ==

== ENCOUNTER → 2024-08-24 12:55 | Outpatient (BNVA) | payer MEDICARE, SELFPAY | PROVIDERS: PCP Clinical Nurse Specialist Adult Health; Visit Provider Dermatology | DX: D03.4 Melanoma in situ of scalp and neck (principal) | CPT/HCPCS: 11623; 13121 ==

== ENCOUNTER 2024-08-31 09:43 | Outpatient (CLI) | payer MEDICARE, SELFPAY ==
--- NOTE | 2024-08-31 10:00 | CTR_ITS ---
PROCEDURE INFORMATION: Exam: CT Chest Without Contrast; Diagnostic Exam date and time: 08/31/2024 10:25 AM Age: 68 years old Clinical indication: Patient HX: Persistent cough with occasional mucus x 4 years TECHNIQUE: Imaging protocol: Diagnostic computed tomography of the chest without contrast. Radiation optimization: All CT scans at this facility use at least one of these dose optimization techniques: automated exposure control; mA and/or kV adjustment per patient size (includes targeted exams where dose is matched to clinical indication); or iterative reconstruction. COMPARISON: CT angio chest [id number] 01/19/2023 4:49 PM RADIATION DOSE METRICS: Total DLP (mGy-cm): 327.05 FINDINGS: Thyroid: The thyroid is not clearly visualized. Lungs: Unremarkable. No consolidation. No masses. Pleural spaces: Unremarkable. No pneumothorax. No pleural effusion. Heart: Unremarkable. No cardiomegaly. No pericardial effusion. Lymph nodes: Unremarkable. No enlarged lymph nodes. Vasculature: Minimal atherosclerotic aortic calcifications. No aortic aneurysm. Gallbladder and biliary ducts: Status post cholecystectomy. Bones/joints: Moderate degenerative changes of the visualized spine. No acute fracture. Soft tissues: Unremarkable. CT/CT chest con [id number] IMPRESSION: 1. No acute findings in the chest. 2. Ancillary findings as above.
== END 2024-08-31 09:44 | disposition home or self-care (01) ==
LOC: RAD 09:45
PROVIDERS: PCP Clinical Nurse Specialist Adult Health; Visit Provider Clinical Nurse Specialist Adult Health
DX: Z00.01 Encounter for general adult medical examination with abnormal findings (principal); R05.9 Cough, unspecified; K44.9 Diaphragmatic hernia without obstruction or gangrene; Z90.49 Acquired absence of other specified parts of digestive tract
CPT/HCPCS: 71250

== ENCOUNTER 2024-11-21 13:26 | Outpatient (CLI) | payer MEDICARE, SELFPAY ==
--- NOTE | 2024-11-21 13:29 | CT_ITS ---
WS: [id number] CT chest w con* [id number] HISTORY: CHRONIC COUGH, history of melanoma. TECHNIQUE: Axial imaging performed through the thorax. Coronal and sagittal reformats are submitted. All CT scans at [facility] use at least one of these dose optimization techniques: automated exposure control; mA and/or kV adjustment per patient size (includes targeted exams where dose is mat ched to clinical indication); or iterative reconstruction. CONTRAST: Omnipaque 350; 100 mL IV. DLP: 359.18 mGy.cm COMPARISON: 08/31/2024 Lungs and central airway: Lungs are clear and well-aerated. There is a tiny micronodules in the perip dutch of the lower lung orellana. No mass. No pneumonia. Pleura: Normal. No pleural effusion. Heart and pericardium: Normal size heart with no pericardial effusion. Mediastinum and humberto: No mediastinum or hilar adenopathy. Vessels: Minimal atherosclerotic calcification. Chest wall and lower neck: No soft tissue masses. Upper abdomen: Prior cholecystectomy. Normal adrenal glands. Osseous structures: No destructive process. CT/CT chest w con* [id number] IMPRESSION: 1. No pneumonia. No pulmonary mass or nodules. 2. No pericardial or pleural effusions. 3. Prior cholecystectomy.
[2024-11-21 14:04] LABS: Blood Urea Nitrogen 7 mg/dL (8-23); Glomerular Filtration Rate 71.1 mL/min (90-130)
[2024-11-21] MEDS: iohexol 350 mg/mL 500 mL Btl (per mL) IV (14:09)
== END 2024-11-21 13:27 | disposition home or self-care (01) ==
LOC: RAD 13:27
PROVIDERS: PCP Clinical Nurse Specialist Adult Health; Visit Provider Otolaryngology
DX: R05.3 Chronic cough (principal); Z90.49 Acquired absence of other specified parts of digestive tract
CPT/HCPCS: 71260; 82565; 84520

== ENCOUNTER → 2024-12-06 13:25 | Outpatient (BNVA) | payer MEDICARE, SELFPAY | PROVIDERS: PCP Clinical Nurse Specialist Adult Health; Visit Provider Dermatology | DX: L82.1 Other seborrheic keratosis (principal); L57.8 Other skin changes due to chronic exposure to nonionizing radiation; L73.8 Other specified follicular disorders; Z86.006 Personal history of melanoma in-situ | CPT/HCPCS: 99213 ==

== ENCOUNTER → 2025-01-20 10:31 | Outpatient (BNVA) | payer MEDICARE, SELFPAY | PROVIDERS: PCP Clinical Nurse Specialist Adult Health; Visit Provider Student in an Organized Health Care Education/Training Program | DX: Z12.11 Encounter for screening for malignant neoplasm of colon (principal); R03.0 Elevated blood-pressure reading, without diagnosis of hypertension | CPT/HCPCS: 99204 ==

== ENCOUNTER 2025-02-07 06:35 | Day surgery (SDC) | payer MEDICARE, SELFPAY ==
[2025-02-07 06:49] VITALS: BP 150/81; PULSE 68; RESP 16; TEMP 36.3; O2SAT 96
[2025-02-07] MEDS: sodium chloride 0.9% 1,000 ML 30 ML IV (06:58)
--- NOTE | 2025-02-07 07:26 | ANES.PREANE2 ---
Pre-Anesthetic Assessment Height/Weight: Height 1.63 m Weight 79.379 kg Temp Pulse Resp BP Pulse Ox O2 Del Method 97.3 F L 68 16 150/81 96 Room Air 02/07/25 06:49 02/07/25 06:49 02/07/25 06:49 02/07/25 06:49 02/07/25 06:49 02/07/25 06:49 Preop Diagnosis: Positive Cologard Operation Date: 02/07/25 08:00 Proposed Procedures p Colonoscopy [id number] G0105 Z12.11(Not Applicable) - Lance Colby MD Familial anesthetic complications: none Was Beta Nancy taken within 24 hours: N/A Was Clonidine taken within 24 hours: N/A Last intake: Intake Last Liquid Date 02/06/25 Last Liquid Time 21:00 Last Solid Date 02/05/25 Last Solid Time 18:00 Social No alcohol and No tobacco Exam alert, oriented x 3, clear to auscultation bilaterally and regular rate & rhythm Airway Submandibular: within normal limits Cervical ROM: within normal limits Mallampati: Class II Dentition: full History/ROS No significant history except as noted and No significant complaints Pulmonary Cough CV/HEM Hypertension None reported Hepatic None reported GI Gastroesophageal Reflux Disease and Hiatal Hernia Metabolic Thyroid Disease [facility] [place] None reported Neuropsych Transient Ischemic Attack Anesthetic Plan ASA status: 2 Anesthesia: MAC Risk of > 500 ml blood loss (7ml/kg in children): No Medications/Allergies Home Medications ?Medication ?Instructions ?Recorded ?Confirmed ?Last Taken ?Type aspirin 81 mg tablet,delayed 81 mg PO QAM 01/07/24 02/02/25 02/02/25 History release atorvastatin 80 mg tablet 80 mg PO QAM #90 tabs 09/16/24 02/02/25 02/06/25 Rx gabapentin 300 mg capsule 300 mg PO TID PRN Pain #90 caps 09/16/24 02/02/25 02/06/25 Rx levothyroxine 88 mcg tablet 88 mcg PO QAM #90 tabs 09/16/24 02/02/25 02/06/25 Rx losartan 100 mg tablet 100 mg PO QAM #30 tabs 09/16/24 02/02/25 02/06/25 Rx omeprazole 20 mg capsule,delayed 20 mg PO QAM #90 caps 09/16/24 02/02/25 02/06/25 Rx release venlafaxine 100 mg tablet 100 mg PO DAILY #90 tabs 12/22/24 02/02/25 02/06/25 Rx Allergies Allergy/AdvReac Type Severity Reaction Status Date / Time No Known Allergies Allergy Verified 02/02/25 09:47 Current Medications Generic Name Dose Route Start Last Admin Trade Name Ikerq PRN Reason Stop Dose Admin Sodium Chloride 1,000 mls @ 30 mls/hr 02/07/25 06:45 02/07/25 06:58 Sodium Chloride 0.9% IV 30 mls/hr .Q24H COLTON Administration PFSH Anesthesia Medical History Diverticulosis Degenerative lumbar disc Vasomotor symptoms due to menopause Post menopausal problems Esophageal hernia Insomnia Hypertension Hypothyroidism Hyperlipidemia Urinary frequency Anemia Lumbar radiculopathy TIA (transient ischemic attack) Lacunar infarction Surgical History (Updated 01/20/25 @ 10:[address]) Hx of foot surgery Hx of cholecystectomy H/O: hysterectomy Family History Mother Sleep apnea Cancer breast cancer with lumpectomy May 2022 Father , Age 69 Heart attack Other CAD (coronary artery disease) Denies family history of Diabetes Stroke Social History Smoking and tobacco/nicotine status: never used tobacco/nicotine Alcohol intake: never Substance/Drug Use: never Marital status: Current occupational status: retired Data Anesthesia Cardiac Studies: Echocardiogram 03/20/23 Sestamibi Stress Test (Cardiology) 01/21/24
--- NOTE | 2025-02-07 08:00 | W.PM.OPSUD ---
Surgery/Procedure H&P Update DATE OF PROCEDURE: February 07, 2025 DATE H&P PERFORMED: 01/20/25 H&P UPDATE INFORMATION: I have reviewed H&P completed within last 30 days, I have examined patient prior to procedure and No changes to prior documentation CHANGES TO PREVIOUS DOCUMENTATION: Risks and benefits discussed PREOP DIAGNOSIS: Positive Cologard PLANNED PROCEDURE: Operation Date: 02/07/25 08:00 Proposed Procedures p Colonoscopy [id number] G0105 Z12.11(Not Applicable) - Lance Colby MD
[2025-02-07 08:23] VITALS: BP 154/63; PULSE 61; RESP 18; TEMP 36.1; O2SAT 94
[2025-02-07 08:36] VITALS: BP 191/68; PULSE 65; RESP 18; O2SAT 95
--- NOTE | 2025-02-07 08:55 | ANE.PACU2 ---
Inpatient post-anesthesia follow up: Airway intact: Yes Vital signs: Temperature 97.0 F Pulse Rate 65 Respiratory Rate 18 Blood Pressure 191/68 Pulse Oximetry 95 Oxygen Delivery Me thod Room Air Oxygen Flow Rate Fraction of Inspir ed Oxygen Hydration adequate: Yes Nausea and vomiting: No Pain level: 1 Mental status: Baseline
== END 2025-02-07 08:56 | disposition home or self-care (01) ==
PROVIDERS: PCP Clinical Nurse Specialist Adult Health; Visit Provider Student in an Organized Health Care Education/Training Program
PROC: 0DJD8ZZ Inspection of Lower Intestinal Tract, Via Natural or Artificial Opening Endoscopic (ICD-10-PCS; CPT 45378; principal; 2025-02-07 08:00)
DX: K62.1 Rectal polyp (principal); R19.5 Other fecal abnormalities; K57.30 Diverticulosis of large intestine without perforation or abscess without bleeding; K21.9 Gastro-esophageal reflux disease without esophagitis; K44.9 Diaphragmatic hernia without obstruction or gangrene; Z79.82 Long term (current) use of aspirin; Z79.890 Hormone replacement therapy; E78.5 Hyperlipidemia, unspecified; I10 Essential (primary) hypertension; E03.9 Hypothyroidism, unspecified; Z79.899 Other long term (current) drug therapy; Z90.49 Acquired absence of other specified parts of digestive tract; Z90.710 Acquired absence of both cervix and uterus
CPT/HCPCS: 45385; 88305; J2405; J2704; J7030

== ENCOUNTER → 2025-02-16 10:26 | Outpatient (BNVA) | payer MEDICARE, SELFPAY | PROVIDERS: PCP Clinical Nurse Specialist Adult Health; Visit Provider Clinical Nurse Specialist Adult Health | DX: I10 Essential (primary) hypertension (principal); E78.5 Hyperlipidemia, unspecified; E03.9 Hypothyroidism, unspecified; F32.89 Other specified depressive episodes | CPT/HCPCS: 80053; 82306; 84443 ==

== ENCOUNTER → 2025-02-20 13:28 | Outpatient (BNVA) | payer MEDICARE, SELFPAY | PROVIDERS: PCP Clinical Nurse Specialist Adult Health; Visit Provider Student in an Organized Health Care Education/Training Program | DX: Z09 Encounter for follow-up examination after completed treatment for conditions other than malignant neoplasm (principal) | CPT/HCPCS: 99213 ==

== ENCOUNTER → 2025-04-05 11:38 | Outpatient (BNVA) | payer MEDICARE, SELFPAY | PROVIDERS: PCP Family Medicine; Visit Provider Family Medicine | DX: R39.9 Unspecified symptoms and signs involving the genitourinary system (principal) | CPT/HCPCS: 81000; 87086 ==

== ENCOUNTER 2025-05-18 13:37 | Outpatient (CLI) | payer MEDICARE, SELFPAY ==
--- NOTE | 2025-05-18 13:43 | XR_ITS ---
WS: [id number] SCREENING DEXA SCAN [facility] CLINICAL INFORMATION: osteoporosis screening COMPARISON: 2020 FINDINGS: The L1-L4 bone mineral density measures 1.626 g/cm2. This corresponds to a T score score of 3.7 and Z score of 4.9. Left femoral neck bone mineral density measures 1.239 g/cm2. This corresponds to a T score of 1.8 and Z score of 2.9. Right femoral neck bone mineral density measures 1.290 g/cm2. This corresponds to a T score 2.2of and Z score of 3.3. Mean femoral neck bone mineral density measures 1.264 g/cm2. This corresponds to a T score of 2.0 and Z score of 3.1. XR/XR DEXA axial skeleton* [id number] IMPRESSION: Normal bone mineralization lumbar spine and femoral necks. Patient's FRAX calculated 10 year probability for major osteoporotic fracture i s 6.1% and osteoporotic hip fracture is 0.2%. Bone mineral density lumbar spine increased 3.2% Bone mineral density femoral necks decreased -1.3%
== END 2025-05-18 13:38 | disposition home or self-care (01) ==
LOC: RAD 13:37
PROVIDERS: PCP Family Medicine; Visit Provider Family Medicine
DX: Z13.820 Encounter for screening for osteoporosis (principal); Z78.0 Asymptomatic menopausal state
CPT/HCPCS: 77080

== ENCOUNTER 2025-07-06 10:40 | Outpatient (CLI) | payer MEDICARE, SELFPAY ==
--- NOTE | 2025-07-06 10:43 | MM_ITS ---
WS: [id number] BILATERAL 3D TOMOSYNTHESIS DIGITAL SCREENING MAMMOGRAPHY WITH CAD CLINICAL INFORMATION: SCREENING HISTORY: Screening mammogram. No current complaints. COMPARISON: 2023 TECHNIQUE: Bilateral CC and MLO views. FINDINGS: Scattered fibroglandular densities bilaterally. No suspicious focal mass, asymmetry, calcifications, or architectural distortion. No evidence of malignancy. MM/MM scr BI tomosynthesis [id number] IMPRESSION: DENSITY: There are scattered areas of fibroglandular density. BI-RADS: 1 - Negative. FOLLOW UP: 1 Year Follow-up Recommend return to annual screening mammography.
== END 2025-07-06 10:41 | disposition home or self-care (01) ==
LOC: RAD 10:41
PROVIDERS: PCP Family Medicine; Visit Provider Family Medicine
DX: Z12.31 Encounter for screening mammogram for malignant neoplasm of breast (principal)
CPT/HCPCS: 77063; 77067

== ENCOUNTER → 2025-08-25 10:33 | Outpatient (BNVA) | payer MEDICARE, SELFPAY | PROVIDERS: PCP Family Medicine; Visit Provider Nurse Practitioner Family | DX: L71.8 Other rosacea (principal); L57.8 Other skin changes due to chronic exposure to nonionizing radiation; L81.4 Other melanin hyperpigmentation; L82.1 Other seborrheic keratosis; Z86.006 Personal history of melanoma in-situ; L82.0 Inflamed seborrheic keratosis; L29.89 Other pruritus; R20.8 Other disturbances of skin sensation; D48.5 Neoplasm of uncertain behavior of skin | CPT/HCPCS: 11102; 17110; 99214 ==